=== PATIENT | male | born 1945 | race Caucasian/White ===

== ENCOUNTER 2017-01-02 13:56 | Emergency (ER) | payer MEDICARE ==
[2017-01-02 15:32] VITALS: BP 147/71
--- NOTE | 2017-01-02 16:03 | UC ---
Back Pain HPI - HPI Summary HPI Summary: 3 WEEKS OF RIGHT LOW BACK PAIN THAT RADIATES DOWN RIGHT LEG. PRIOR TO ONSET HAD BEEN DOING A LOT OF YARD WORK AND THINKS HE MAY HAVE HURT HIS BACK THEN. CHIROPRACTIC NOT HELPING. TYLENOL GIVES SOME RELIEF. WORSE WITH WALKING AND WHEN LAYING DOWN. NO NUMBNESS, TINGLING OR SADDLE ANESTHESIA. - History of Current Complaint Chief Complaint: UCBackPain Stated Complaint: BACK PAIN Time Seen by Provider: 01/02/17 16:01 Hx Obtained From: Patient Onset/Duration: Gradual Onset, Lasting Weeks, Still Present Timing: Constant Severity Initially: Moderate Severity Currently: Moderate Pain Intensity: 6 Pain Scale Used: 0-10 Numeric Back Pain: Is Discrete @ - RIGHT LOW BACK Character: Sharp, Aching Aggravating: Movement, Walking Alleviating: Rest, Position Associated Signs And Symptoms: Negative: Weakness, Numbness, Tingling, Bladder Incontinence, Bowel Incontinence - Allergies/Home Medications Allergies/Adverse Reactions: Allergies Allergy/AdvReac Type Severity Reaction Status Date / Time Tramadol AdvReac Nausea Verified 01/02/17 15:19 BANDAIDS Allergy RED, ITCHY Uncoded 01/02/17 15:19 ELASTIC WAIST BANDS Allergy ITCHY, RED Uncoded 01/02/17 15:19 ENVIRONMENT/SEASON HAYFEVER Allergy STUFFY Uncoded 01/02/17 15:19 PMH/Surg Hx/FS Hx/Imm Hx Endocrine History Of: Denies: Diabetes Cardiovascular History Of: Reports: Cardiac Disorders - CAD, AL, Hypertension, Myocardial Infarction Respiratory History Of: Denies: COPD, Asthma - Surgical History Surgical History: Yes Surgery Procedure, Year, and Place: 2009 CARDIAC CATHERIZATION WITH STENTS X 2, [facility]. 2001 MOHS SURGERY LEFT EAR, [facility]. TOOTH EXTRACTIONS, OFFICE. 2010 CARDIAC CATHERIZATION, [facility] [place]. 11/06/2015 RIGHT CARPAL TUNNEL RELEASE [facility] - Family History Known Family History: Positive: Hypertension, Diabetes - Social History Alcohol Use: None Substance Use Type: None Smoking Status (MU): Never Smoked Tobacco Have You Smoked in the Last Year: No - Immunization History Most Recent Influenza Vaccination: 2016 Most Recent Tetanus Shot: WITHIN LAST FIVE YEARS Most Recent Pneumonia Vaccination: 2014 Review of Systems Constitutional: Negative Skin: Negative Respiratory: Negative Cardiovascular: Negative Gastrointestinal: Negative Musculoskeletal: Arthralgia, Decreased ROM All Other Systems Reviewed And Are Negative: Yes Physical Exam Triage Information Reviewed: Yes Appearance: Well-Appearing, Well-Nourished, Pain Distress - MODERATE Vital Signs: Initial Vital Signs Temp 98 F 01/02/17 15:22 Pulse 61 01/02/17 15:22 Resp 18 01/02/17 15:22 BP 147/71 01/02/17 15:22 Pulse Ox 99 01/02/17 15:22 Vital Signs Reviewed: Yes Eyes: Positive: Conjunctiva Clear ENT: Positive: Hearing grossly normal Neck: Positive: Supple Respiratory: Positive: No respiratory distress, No accessory muscle use Cardiovascular: Positive: Pulses Normal Abdomen Description: Positive: Soft Musculoskeletal: Positive: ROM Intact, No Edema, Other: - NEG STRAIGHT LEG RAISE Neurological: Positive: Alert Psychological: Positive: Age Appropriate Behavior Skin: Negative: rashes Diagnostics - Radiology LUMBAR SPINE XRAYS Xray Interpretation: Positive (See Comments) - 1. CHRONIC MILD COMPRESSION FRACTURE OF THE SUPERIOR ENDPLATE OF THE L2 VERTEBRAL BODY, UNCHANGED. 2. MILD RETROLISTHESIS L4-L5, UNCHANGED. 3. MODERATE DEGENERATIVE DISC DISEASE DEMONSTRATING SLIGHT PROGRESSION. Radiology Interpretation Completed By: Radiologist Back Pain Course/Dx - Differential Dx/Diagnosis Provider Diagnoses: 1. DDD. 2. LUMBAR RADICULOPATHY Discharge - Discharge Plan Condition: Stable Disposition: HOME Prescriptions: oxyCODONE/Acetamin 5/325 MG* [Percocet 5/325 TAB*] 1 tab PO Q6H PRN #20 tab MDD 4 PRN Reason: Pain predniSONE TAB* [Deltasone TAB*] 50 mg PO DAILY #5 tab Patient Education Materials: Lumbar Radiculopathy (ED), Degenerative Disc Disease (ED) Referrals: Orestes Dickerson MD [Medical Doctor] - If Needed Juan F Solano MD [Primary Care Provider] - As Soon As Possible (YOU MAY BENEFIT FROM AN MRI) Additional Instructions: GO TO THE ER WITHOUT FAIL IF YOUR SYMPTOMS WORSEN OR IF YOU DEVELOP LOSS OF BOWEL/BLADDER CONTROL OR ANY OTHER CONCERNING SYMPTOMS. [facility] [address] [place] [address] [phone]
--- NOTE | 2017-01-02 16:50 | RAD ---
INDICATION: Low back pain. COMPARISON: Comparison is made with prior study from November 01 2011. TECHNIQUE: 3 views of the lumbar spine were obtained including lateral, AP and a coned-down lateral view of the lumbar sacral junction. FINDINGS: There is mild retrolisthesis of L4 relative to L5 of approximately 4 mm which is unchanged from the prior exam. There is a mild chronic compression fracture of the superior endplate of the L2 vertebral body which is unchanged. No acute fracture is seen. There is moderate degenerative disc disease at the L1-L2 and L4-L5 levels which has progressed slightly from the prior study. IMPRESSION: 1. CHRONIC MILD COMPRESSION FRACTURE OF THE SUPERIOR ENDPLATE OF THE L2 VERTEBRAL BODY, UNCHANGED. 2. MILD RETROLISTHESIS L4-L5, UNCHANGED. 3. MODERATE DEGENERATIVE DISC DISEASE DEMONSTRATING SLIGHT PROGRESSION.
== END 2017-01-02 17:25 | disposition home or self-care (01) ==
LOC: UCEAST 13:56
DX: M51.36 Other intervertebral disc degeneration, lumbar region (principal); M54.16 Radiculopathy, lumbar region; S32.020A Wedge compression fracture of second lumbar vertebra, initial encounter for closed fracture; X58.XXXA Exposure to other specified factors, initial encounter; Y93.H9 Activity, other involving exterior property and land maintenance, building and construction; Y92.007 Garden or yard of unspecified non-institutional (private) residence as the place of occurrence of the external cause; I25.10 Atherosclerotic heart disease of native coronary artery without angina pectoris; I25.2 Old myocardial infarction; I10 Essential (primary) hypertension; Z95.5 Presence of coronary angioplasty implant and graft; Z88.5 Allergy status to narcotic agent
CPT/HCPCS: 72100; 99212; G0463

== ENCOUNTER 2017-02-10 08:31 | Observation (INO) | payer MEDICARE ==
[~2017-02-10 08:31] MED LIST: Buffered Lidocaine 1% SYRIN* 3 ML/SYR SYRINGE INTRADERM ONE; Dexamethasone IV* 4 MG/ML 1 ML (4 MG) IV SLOW PU ONE; Dexamethasone IV* 4 MG/ML 1 ML (4 MG) ONE; Famotidine IV* 10 MG/ML 2 ML (20 mg) IV ONE; Famotidine IV* 10 MG/ML 2 ML (20 mg) ONE; Metoclopramide TAB* 10 MG ONE; Metoclopramide TAB* 10 MG PO ONE; ceFAZolin 2 GM PREMIX(*) 2 GM/50 ML BAG IVPB ONE
[2017-02-10] MEDS ORDERED: Dexamethasone IV* 4 MG/ML 1 ML (4 MG) ONE (09:00)
[2017-02-10] MEDS ORDERED: Ondansetron INJ* 2 MG/ML VIAL ONE (09:00)
[2017-02-10] MEDS ORDERED: fentaNYL* 50 MCG/ML 2 ML VIAL (100 MCG VIAL) ONE (09:00)
[2017-02-10] MEDS ORDERED: Phenylephrine INJ* 10 MG/ML 1 ML VIAL (10 MG) ONE (09:00)
[2017-02-10] MEDS ORDERED: Propofol* 10 MG/ML 20 ML BTL IV PUSH ONE (09:00)
[2017-02-10] MEDS ORDERED: Lidocaine 2% PF * 5 ML VIAL ONE (09:00)
[2017-02-10] MEDS ORDERED: Cisatracurium* 2 MG/ML MDV 5 ML ONE (09:00)
[2017-02-10] MEDS ORDERED: KETAMINE HCL* 50 MG/ML 10 ML VIAL ONE (09:00)
[2017-02-10] MEDS ORDERED: Midazolam* 1 MG/ML 5 ML VIAL (5 MG) ONE (09:01)
[2017-02-10] MEDS ORDERED: Bacitracin IV* 50,000 UNITS INJ ONE (10:04)
[2017-02-10] MEDS ORDERED: Thrombin 5,000 UNITS* 1 APPLIC KIT - topical use - TOPICAL ONE (10:04)
[2017-02-10] MEDS ORDERED: Lidocain 1% EPI 1:100,000 * 30 ML MDV ONE (10:04)
[2017-02-10] MEDS ORDERED: Artificial Tear OPHTH.OINT* 3.5 GM ONE (10:20)
[2017-02-10] MEDS ORDERED: EPHEDrine (Pressors)* 50 MG/ML VIAL ONE (10:46)
[2017-02-10] MEDS ORDERED: Ondansetron INJ* 2 MG/ML VIAL IV PRN ×2 (11:30→12:09)
[2017-02-10] MEDS ORDERED: HYDROmorphone* 1 MG/ML 1 ML SYR IV PRN (11:30)
[2017-02-10] MEDS ORDERED: fentaNYL* 50 MCG/ML 2 ML VIAL (100 MCG VIAL) IV PRN (11:30)
[2017-02-10] MEDS ORDERED: oxyCODONE/Acetamin 5/325 MG* TAB PO PRN (11:30)
[2017-02-10] MEDS ORDERED: DiMENhydriNATE IV* 50 MG/ML VIAL IV PUSH PRN (11:30)
--- NOTE | 2017-02-10 11:36 | RAD ---
HISTORY: Decompressive lumbar laminectomy COMPARISONS: January 02, 2017 VIEWS: 1 , portable intraoperative view of the lumbar spine for localization of spinal surgery performed at 11:00 AM FINDINGS: On the portable lateral view of the spine, counting from L5, a metallic probe is noted opposite of L4-L5 IMPRESSION: LIMITED PORTABLE VIEW OF THE LUMBAR SPINE PERFORMED INTRAOPERATIVELY FOR LOCALIZATION DURING SPINAL SURGERY
[2017-02-10] MEDS ORDERED: HYDROmorphone* 1 MG/ML 1 ML SYR ONE (11:49)
[2017-02-10] MEDS ORDERED: Acetaminophen TAB* 325 MG PO PRN (12:09)
[2017-02-10] MEDS ORDERED: Fluticasone NASAL SPRAY 50MCG* 16 gm SPRAY BTL BOTH NARES PRN (12:12)
[2017-02-10] MEDS ORDERED: Nitroglycerin TAB 0.4 MG* 0.4 MG TAB SL PRN (12:12)
[2017-02-10] MEDS ORDERED: oxyCODONE/Acetamin 5/325 MG* TAB ONE (15:42)
[2017-02-10] MEDS: oxyCODONE/Acetamin 5/325 MG* TAB PO PRN ×2 (15:44→23:55)
[2017-02-10] MEDS ORDERED: Aspirin EC Low Dose* 81 MG TAB.EC PO SCH (18:00)
[2017-02-10] MEDS ORDERED: Finasteride TAB* 5 MG PO SCH (18:00)
[2017-02-10] MEDS ORDERED: Senna TAB PO SCH (18:00)
[2017-02-10] MEDS ORDERED: Docusate CAP* 100 MG PO SCH (18:00)
[2017-02-10] MEDS ORDERED: Tamsulosin CAP* 0.4 MG PO SCH (18:00)
[2017-02-10] MEDS ORDERED: Atorvastatin* 20 MG TAB PO SCH (18:00)
[2017-02-10] MEDS: Famotidine TAB* 20 MG PO SCH (20:40)
[2017-02-10] MEDS: Metoprolol Tartrate TAB* 50 mg PO SCH (20:41)
[2017-02-11] MEDS: oxyCODONE/Acetamin 5/325 MG* TAB PO PRN (07:23)
--- NOTE | 2017-02-11 08:16 | PN ---
Progress Note - Progress Note SOAP: Subjective: [This is a 71 year old male s/p decompressive lumbar laminectomy L4-5 and lumbar discectomy L4-5 right, POD #1. He complains of mild incisional pain. He is ambulating independently without difficulty. Pre-operative lower extremity symptoms are improving. He is eating, drinking and voiding without difficulty. Pain is well controlled with oral pain medications. Denies headache. No numbness , tingling or weakness in lower extremities. ] Objective: [ Vital Signs: Temp Pulse Resp BP Pulse Ox 97.9 F 51 16 137/74 95 02/11/17 03:17 02/11/17 03:17 02/11/17 07:23 02/11/17 03:17 02/11/17 03:17 General: Alert and oriented. No distress. Neuro: Motor and sensory intact. Incision: Intact with river. No swelling. HUGO drain removed today. HUGO output 02/10/17 02/10/17 02/10/17 13:15 16:26 18:56 Output, HUGO #1 15 70 30 02/10/17 02/11/17 02/11/17 23:04 00:18 04:30 Output, HUGO #1 10 15 20 ] Assessment: [Satisfactory post op course. Pain well controlled. ] Plan: [1. Discharge home today. 2. Discharge instructions including wound care and activity level were discussed with the patient. ]
[2017-02-11] MEDS: Famotidine TAB* 20 MG PO SCH (08:46)
[2017-02-11] MEDS: Metoprolol Tartrate TAB* 50 mg PO SCH (08:47)
[2017-02-11 08:50] VITALS: BP 129/69
[2017-02-11] MEDS ORDERED: Lisinopril TAB* 5 MG PO SCH (09:00)
--- NOTE | 2017-02-11 15:00 | DS ---
DATE OF ADMISSION: 02/10/2017. DATE OF DISCHARGE: 02/11/2017. DISCHARGE DIAGNOSES: 1. Lumbar spinal stenosis at L4-5. 2. Coronary artery disease. SPECIAL PROCEDURES: Decompressive lumbar laminectomy L4-5 and lumbar diskectomy L4- 5 on the right. HOSPITAL COURSE: This 71-year-old male was seen in the office with symptomatic lumbar spinal stenosis which had failed to improve over the previous several years with conservative therapy. He was admitted at this time for elective surgical intervention. On the day of admission, he was taken to surgery where under general anesthesia a decompressive lumbar laminectomy at L4-5 operation was carried out. During surgery, it was noticed that a disk fragment was compressing the nerve at L4- 5 and therefore a lumbar diskectomy at L4-5 on the right was also performed. Postoperatively, the patient is feeling well. He complained of incisional low back pain related to surgery and relieved with oral pain medication. He was ambulating independently. He was eating, drinking and voiding without difficulty. On the first postoperative day, the incisional drain was removed and he was discharged home to the care of his family. Discharge instructions, including wound care and activity level were discussed with the patient and are provided. He will be seen in the office in approximately seven to ten days for a follow-up and staple removal. DISCHARGE MEDICATIONS: None. STACY ZULETA [id number]/[facility] #: [id number] MTDTalib
--- NOTE | 2017-02-17 12:11 | OP ---
DATE OF OPERATION: 02/10/17 - ROOM #351 DATE OF : 41. SURGEON: Orestes Dickerson MD. FEED IN WORKER: STACY Coombs. ANESTHESIOLOGIST: Jhonny Choi MD ANESTHESIA: General. PRE-OP DIAGNOSIS: Lumbar spinal stenosis L4-5. POST-OP DIAGNOSIS: Lumbar spinal stenosis L4-5, herniated nucleus pulposus L4- 5 on the right. OPERATIVE PROCEDURE: Decompressive lumbar laminectomy L4-5 with lumbar diskectomy L4-5 on the right with microdissection. DESCRIPTION OF PROCEDURE: After satisfactory general anesthesia was obtained, the patient was placed on the operating table in a prone position with the chest supported on the Dmitriy frame and the back slightly flexed. The lumbar region was then clipped, prepped, and draped in sterile manner for lumbar laminectomy and a skin incision outlined from L4-L5. This incision was infiltrated with 1% Xylocaine with epinephrine after which it was turned down sharply to the level of the lumbar fascia. The fascia was divided along the spinous processes of L4 and L5 and the paraspinal musculature stripped away from these posterior elements using the periosteal elevator and monopolar cautery. An intraoperative x-ray was obtained verifying proper interspace and localization after which a decompression was performed by moving the spinous process of the L4 and the spinous process of L5. The Midas Elier drill was then used to thin out the remaining portion of the base of the spinous process of L4 and the inferior aspect of the lamina of L4 as well as the facet complex. A decompression was then carried out removing both bone and ligament superiorly until the attachment of ligamentum flavum was taken down. Ligamentum flavum was removed with the Kerrison as well. The pathology in this case was both a component of bony hypertrophy as well as ligamentous thickening. On the right side in palpating the disk, there was noted to be free disk fragment projecting inferior to the disk space. To better expose this region, operating microscope was brought into the field and the remainder of the procedure done under microscopic visualization. Utilizing micro-dissection, this area was explored and multiple freely extruded disk fragments were found extending out into the neural foramen on the right side. Multiple fragments were removed and the disk space itself was noted to be somewhat collapsed. After conclusion of the decompression, the L5 nerve root was noted to be free in its course. After assuring adequate hemostasis, the wound was thoroughly irrigated after which a drain was placed in the epidural space and tunneled out through the right side. The fascia was reapproximated with 0-Vicryl sutures, the subcutaneous tissue was closed with 2 and 3-0 Vicryl suture, and the skin closed with skin clips. The estimated blood loss was less than 50 cc and the final sponge, padding, and needle counts were correct. The patient was taken to the recovery room extubated and in stable condition. [id number]/[facility] #: [id number] ADEBAYO
== END 2017-02-11 10:05 | disposition home or self-care (01) ==
LOC: OR 08:31 → SSU 13:45
PROVIDERS: ADMIT Neurological Surgery; ATTEND Neurological Surgery
PROC: 01NB0ZZ Release Lumbar Nerve, Open Approach (ICD-10-PCS; 2017-02-10)
PROC: 0SB20ZZ Excision of Lumbar Vertebral Disc, Open Approach (ICD-10-PCS; principal; 2017-02-10 10:00)
DX: M48.06 Spinal stenosis, lumbar region (principal); M51.26 Other intervertebral disc displacement, lumbar region; I10 Essential (primary) hypertension; Z88.2 Allergy status to sulfonamides; Z88.8 Allergy status to other drugs, medicaments and biological substances
CPT/HCPCS: 72100; A9270-GY; G0378; J0690; J1100; J1170; J2250; J2405; J2704; J3010

== ENCOUNTER 2017-03-31 07:03 | Inpatient (IN) | payer MEDICARE ==
--- NOTE | 2017-03-27 18:20 | HP ---
HISTORY AND PHYSICAL: DATE OF ADMISSION/SURGERY: 03/31/17 ATTENDING SURGEON: Dr. Corea (DICTATED BY STACY LI) PROCEDURE: Left total knee arthroplasty. CHIEF COMPLAINT: Left knee pain. HISTORY OF PRESENT ILLNESS: Mr. Bowden is a 71-year-old gentleman with complaints of left knee pain. He has failed conservative management and has elected to proceed with a left total knee arthroplasty which is scheduled for with Dr. Corea. PAST MEDICAL HISTORY: OR, coronary artery disease, hyperlipidemia, hypertension , BPH, squamous cell carcinoma of the face. PAST SURGICAL HISTORY: Carpal tunnel release bilaterally, right total knee arthroplasty, lumbar laminectomy, cardiac catheterization with stent placement, teeth extraction. CURRENT MEDICATIONS: 1. Plavix. 2. Aspirin. 3. Lisinopril. 4. Metoprolol. 5. Ocuvite. 6. Nitrostat. 7. Simvastatin. 8. Famotidine. 9. Loratadine. 10. Finasteride. 11. Tamsulosin. 12. Fluticasone. ALLERGIES: To BACTRIM. FAMILY HISTORY: Family history of colon cancer. SOCIAL HISTORY: He is a 71-year-old gentleman who lives with his . He does not smoke, use drugs or alcohol. REVIEW OF SYSTEMS: A complete 14-point review of systems is reviewed with the patient and is positive for anemia and mild occasional lightheadedness. He denies history of DVT, PE, or anesthesia problems. PHYSICAL EXAMINATION GENERAL: Well developed, well nourished, in no acute distress. VITAL SIGNS: He stands 6 feet tall, weighs 235 pounds. Blood pressure is 128/ 70, heart rate is 63. HEENT: Normocephalic and atraumatic. NECK: Supple. No palpable lymph nodes. PULMONARY: Lungs are clear to auscultation bilaterally. CARDIO: Regular rate and rhythm. Strong S1, S2. No murmurs, gallops or rubs. ABDOMEN: Soft, nontender, nondistended. NEUROLOGICAL: Alert and oriented x3. Cranial nerves II through XII are intact. MUSCULOSKELETAL: Left lower extremity, the skin is intact. There are no open wounds or abrasions. He has tenderness over the medial and lateral joint line. His lower extremities muscle group strengths are intact at 5/5. He has intact sensation. 2+ dorsalis pedis pulses. ASSESSMENT AND PLAN: Mr. Bowden is a 71-year-old gentleman with complaints of left knee pain secondary to advanced osteoarthritis. He has failed conservative management. He has elected to proceed with a left total knee arthroplasty. Percocet and Senokot were sent to his pharmacy for postoperative pain control. He will follow up with Dr. Corea in 2 weeks after the surgery. STACY LI [id number]/[facility] #: [id number] ADEBAYO
[~2017-03-31 07:03] MED LIST changes: +Buffered Lidocaine 0.9% SYRIN* 5 ML/SYR SYRINGE INTRADERM ONE; -Buffered Lidocaine 1% SYRIN* 3 ML/SYR SYRINGE INTRADERM ONE; -Dexamethasone IV* 4 MG/ML 1 ML (4 MG) IV SLOW PU ONE; -Dexamethasone IV* 4 MG/ML 1 ML (4 MG) ONE; -Famotidine IV* 10 MG/ML 2 ML (20 mg) IV ONE; -Famotidine IV* 10 MG/ML 2 ML (20 mg) ONE; -Metoclopramide TAB* 10 MG ONE; -Metoclopramide TAB* 10 MG PO ONE; -ceFAZolin 2 GM PREMIX(*) 2 GM/50 ML BAG IVPB ONE
[2017-03-31] MEDS ORDERED: ceFAZolin 2 GM PREMIX(*) 2 GM/50 ML BAG IVPB ONE (07:08)
[2017-03-31] MEDS ORDERED: Buffered Lidocaine 0.9% SYRIN* 5 ML/SYR SYRINGE ONE (07:08)
[2017-03-31] MEDS ORDERED: Succinylcholine* 20 MG/ML 10 ML VIAL ONE (08:38)
[2017-03-31] MEDS ORDERED: Propofol* 10 MG/ML 20 ML BTL IV PUSH ONE (08:38)
[2017-03-31] MEDS ORDERED: Midazolam* 1 MG/ML 5 ML VIAL (5 MG) ONE (08:38)
[2017-03-31] MEDS ORDERED: fentaNYL* 50 MCG/ML 2 ML VIAL (100 MCG VIAL) ONE ×3 (08:38→12:18)
[2017-03-31] MEDS ORDERED: Bupivacaine 0.5% SDV PF* 30 ML VIAL ONE ×2 (09:09→10:35)
[2017-03-31] MEDS ORDERED: Ondansetron INJ* 2 MG/ML VIAL IV PRN ×2 (10:54→12:13)
[2017-03-31] MEDS ORDERED: DiMENhydriNATE IV* 50 MG/ML VIAL IV PUSH PRN (10:54)
[2017-03-31 10:57] LABS: Urine Bilirubin Negative (Negative); Urine Glucose Negative (Negative); Urine Nitrite Negative (Negative)
[2017-03-31] MEDS ORDERED: diPHENhydraMINE IV* 50 MG/ML 1 ml VIAL (BENADRYL) IV PRN (12:13)
[2017-03-31] MEDS ORDERED: diPHENhydraMINE PO* 25 MG PO PRN (12:13)
[2017-03-31] MEDS ORDERED: HYDROmorphone* 1 MG/ML 1 ML SYR ONE ×2 (12:18→22:07)
[2017-03-31] MEDS: fentaNYL* 50 MCG/ML 2 ML VIAL (100 MCG VIAL) IV PRN ×4 (12:19→12:57)
[2017-03-31] MEDS ORDERED: Polyethylene Glycol 3350* 17 GM PACKET PO PRN (12:20)
[2017-03-31] MEDS ORDERED: Bisacodyl SUPP* 10 MG SUPP PR PRN (12:20)
[2017-03-31] MEDS: HYDROmorphone* 1 MG/ML 1 ML SYR IV PRN ×5 (12:21→13:05)
[2017-03-31] MEDS ORDERED: Fluticasone NASAL SPRAY 50MCG* 16 gm SPRAY BTL BOTH NARES PRN (12:24)
[2017-03-31] MEDS ORDERED: Nitroglycerin TAB 0.4 MG* 0.4 MG TAB SL PRN (12:24)
--- NOTE | 2017-03-31 12:37 | CONSULT ---
Subjective Date of Service: 03/31/17 Interval History: 71 yo M with hx of HTN, HLD, CAD s/p stent x2, BPH with progressive L knee pain now s/p L TKA by Dr. Corea. Patient seen in PACU. Reports 9/10 pain in L knee but otherwise feels well. No issues leading up to the surgery, has been feeling well aside from the knee. Reports he was taken off of Plavix last week, took it last on 03/25. Family History: Findings - F - colon cancer, M - bladder cancer Social History: Findings - No tobacco abuse, does not drink EtOH, no drug use Past Medical History: Findings - HTN, HLD, CAD s/p stent x 2 in [place], BPH Review of Systems - Measurements Intake and Output: Intake and Output Last 24 Hours 03/29/17 03/30/17 03/31/17 04/01/17 06:59 06:59 06:59 06:59 Intake Total 1600 Output Total 805 Balance 795 Intake: IV Fluids 1600 LR 1600 Output: [place] 625 Residual 30 Londono 16 Fr 30 Estimated Blood Loss 150 - Review of Systems Constitutional Symptoms: Negative: Fever Dermatology: Positive: Normal HEENT: Positive: Normal Eyes: Positive: Normal Thyroid: Positive: Normal Pulmonary: Positive: Normal Cardiology: Positive: Normal Gastroenterology: Positive: Normal Genital - Urinary: Positive: Normal Musculoskeletal: Positive: Joint Pain, Arthritis Endocrinology: Positive: Normal Neurology: Positive: Normal Psychiatry: Positive: Normal Objective Active Medications: Aspirin (Aspirin Ec Low Dose*) 81 mg PO QPM LEIF Bisacodyl (Dulcolax Supp*) 10 mg [place] DAILY PRN Dimenhydrinate (Dramamine Iv*) 12.5 mg IV PUSH ONCE PRN Diphenhydramine HCl (Benadryl Iv*) 12.5 mg IV Q6H PRN Diphenhydramine HCl (Benadryl Po*) 25 mg PO Q6H PRN Docusate Sodium (Colace Cap*) 100 mg PO BID LEIF Enoxaparin Sodium (Lovenox(*)) 30 mg SUBCUT Q24H LEIF Famotidine (Pepcid Tab*) 20 mg PO BID LEIF Fentanyl Citrate (Fentanyl*) 25 mcg IV Q2M PRN Finasteride (Proscar Tab*) 5 mg PO QPM LEIF Fluticasone Propionate (Flonase Nasal [place] 50mcg*) 2 spray BOTH NARES DAILY PRN Hydromorphone HCl (Dilaudid Iv*) 0.2 mg IV Q5M PRN Lactated Ringer's (Lactated Ringers 1000 Ml Bag*) 1,000 mls @ 125 mls/hr IV PER RATE LEIF Lactated Ringer's (Lactated Ringers 1000 Ml Bag*) 1,000 mls @ 100 mls/hr IV PER RATE LEIF Cefazolin Sodium 1 gm/ Sodium (Chloride) 50 mls @ 200 mls/hr IVPB Q8H LEIF Lactulose (Lactulose*) 30 ml PO Q6H PRN Lidocaine/Sodium Bicarbonate (Buffered Lidocaine 0.9% Syrin*) 0.2 ml INTRADERM ONCE ONE Lisinopril (Prinivil Tab*) 2.5 mg PO QAM LEIF Loratadine (Claritin Tab(Nf)) 10 mg PO QPM LEIF Magnesium Hydroxide (Milk Of Magnesia Liq*) 30 ml PO BID LEIF Metoprolol Tartrate (Lopressor Tab*) 75 mg PO BID LEIF Morphine Sulfate (Morphine Inj (Syringe)*) 5 mg IV Q2H PRN Multivitamins/Minerals (Preservision Areds(Multivitamins/Mineral)(Nf)) 1 cap PO QAM LEIF Nitroglycerin (Nitroglycerin Tab 0.4 Mg*) 0.4 mg SL SEE INSTRUCTIONS PRN Ondansetron HCl (Zofran Inj*) 4 mg IV ONCE PRN Ondansetron HCl (Zofran Inj*) 4 mg IV Q6H PRN Ondansetron HCl (Zofran Tab*) 4 mg PO Q6H PRN Oxycodone HCl (Roxycodone Tab*) 10 mg PO Q4H PRN Oxycodone/Acetaminophen (Percocet 5/325 Tab*) 2 tab PO Q3H PRN Oxycodone/Acetaminophen (Percocet 5/325 Tab*) 1 tab PO Q3H PRN Polyethylene Glycol/Electrolytes (Miralax*) 17 gm PO DAILY PRN Simvastatin (Zocor (Nf)) 40 mg PO QPM LEIF Tamsulosin HCl (Flomax Cap*) 0.4 mg PO QPM LEIF Warfarin Sodium (Coumadin Tab(*)) 6 mg PO ONCE@1700 ONE Vital Signs 0603/31/17 03/31/17 12:06 12:10 12:19 Temperature 98.2 F Pulse Rate 67 67 Respiratory 24 16 18 Rate Blood Pressure 128/74 99/87 (mmHg) O2 Sat by Pulse 92 91 Oximetry Oxygen Devices in Use Now: None Appearance: Elderly, M, bundled in blankets, laying in bed in NAD Eyes: No Scleral Icterus Ears/Nose/Mouth/Throat: Mucous Membranes Moist Neck: NL Appearance and Movements; NL JVP Respiratory: Symmetrical Chest Expansion and Respiratory Effort, Clear to Auscultation Cardiovascular: NL Sounds; No Murmurs; No JVD, RRR Abdominal: NL Sounds; No Tenderness; No Distention Lymphatic: No Cervical Adenopathy Extremities: No Edema, - - L knee with dressing and cryounit in place Skin: No Rash or Ulcers Neurological: Alert and Oriented x 3 Assessment/Plan - Billing 71 yo M with hx of HTN, HLD, CAD s/p stent x2, BPH s/p L TKA by Dr. Corea on 1) S/P L TKA - management, analgesia as per Ortho - Coumadin ordered for tonight 2) HTN - hold Lisinopril for now - continue Metoprolol with hold parameters 3) CAD - continue ASA, metoprolol, statin - holding ACEI - will need to discuss with Ortho when plans are to resume Plavix, ?after course of AC 4) BPH - continue finasteride and tamsulosin 5) DVT PPx - warfarin/lovenox Thank you for this consult, will continue to follow along
[2017-03-31] MEDS ORDERED: oxyCODONE/Acetamin 5/325 MG* TAB ONE (13:28)
[2017-03-31] MEDS: oxyCODONE/Acetamin 5/325 MG* TAB PO PRN ×3 (13:29→20:42)
--- NOTE | 2017-03-31 13:38 | RAD ---
INDICATION: The patient is status post left total knee arthroplasty. COMPARISON: Preoperative radiograph dated March 27, 2017 TECHNIQUE: 2 view radiograph of the left knee. FINDINGS: The left knee prosthesis is anatomically aligned in the AP and lateral projections. There is no evidence of loosening or fracture. Postoperative findings include a percutaneous surgical drain and subcutaneous gas. IMPRESSION: Anatomic alignment of left knee prosthesis with expected postoperative findings.
[2017-03-31] MEDS ORDERED: Morphine INJ* 10 MG/ML 1 ML SYRINGE ONE (15:00)
[2017-03-31] MEDS: Morphine INJ* 10 MG/ML 1 ML SYRINGE IV PRN ×3 (15:06→20:07)
[2017-03-31] MEDS ORDERED: Warfarin TAB(*) 6 MG PO ONE (17:00)
[2017-03-31] MEDS: Aspirin EC Low Dose* 81 MG TAB.EC PO SCH (17:26)
[2017-03-31] MEDS: Finasteride TAB* 5 MG PO SCH (17:26)
[2017-03-31] MEDS: Cetirizine* 10 MG TAB PO SCH (17:26)
[2017-03-31] MEDS: ceFAZolin VIAL(*) 1 GM in NS 0.9% 50 ML* 50 ML IVPB SCH (17:26)
[2017-03-31] MEDS: Tamsulosin CAP* 0.4 MG PO SCH (17:26)
[2017-03-31] MEDS: Atorvastatin* 20 MG TAB PO SCH (17:26)
[2017-03-31] MEDS: Famotidine TAB* 20 MG PO SCH (20:42)
[2017-03-31] MEDS: Docusate CAP* 100 MG PO SCH (20:42)
[2017-03-31] MEDS: Magnesium Hydroxide LIQ* 30 ML UDC PO SCH (20:43)
[2017-03-31] MEDS ORDERED: Metoprolol Tartrate TAB* 50 mg PO SCH (21:00)
[2017-03-31] MEDS: Metoprolol Tartrate TAB* 25 MG PO SCH (22:41)
[2017-04-01] MEDS: oxyCODONE/Acetamin 5/325 MG* TAB PO PRN ×4 (00:47→21:29)
[2017-04-01] MEDS: ceFAZolin VIAL(*) 1 GM in NS 0.9% 50 ML* 50 ML IVPB SCH ×2 (02:27→09:42)
[2017-04-01] MEDS: HYDROmorphone* 1 MG/ML 1 ML SYR IV PRN ×4 (02:34→13:26)
--- NOTE | 2017-04-01 04:40 | OP ---
DATE OF OPERATION: 03/31/17 - ROOM #350 DATE OF : 41 SURGEON: Dejah Corea MD FOLDER TAPER OPERATOR: STACY Ferraro. Ms. Villarreal did help throughout the procedure with preparation of the leg, wound retraction, manipulation of the knee, and wound closure. ANESTHESIOLOGIST: Kendell Grace MD ANESTHESIA: General with adductor nerve block. PRE-OP DIAGNOSIS: Severe end-stage degenerative osteoarthritis of the left knee joint. POST-OP DIAGNOSIS: Severe end-stage degenerative osteoarthritis of the left knee joint. OPERATIVE PROCEDURE: Left total knee arthroplasty. TOURNIQUET TIME: 47 minutes. ESTIMATED BLOOD LOSS: 300 cc. COMPLICATIONS: None. SPECIMEN: Bone and cartilage from the left knee joint sent to pathology. HARDWARE USED: This is cemented [employer] total knee hardware. Two packages of Simplex bone cement were used. For the femur, a size 7 left posterior stabilized region femoral component. For the tibia, a size 6 tibial base plate. For the insert, an 11 mm posterior stabilized articular insert. For the patella, a 35-mm 3-peg all poly patella. BRIEF HISTORY/INDICATIONS: Mr. Bowden is a 71-year-old gentleman with years of increasingly severe left knee pain. He failed conservative treatment with anti - inflammatories, pain pills, ambulatory assistive device, physical therapy, and intraarticular injections. Due to continued pain and decreased quality of life, he elected to undergo left total knee arthroplasty. Radiographs confirmed bone-on- bone arthritis. Informed consent was obtained from the patient. He understood the risks of the procedure included, but were not limited to bleeding, infection, damage to nearby structures, continued pain, need for further surgery, intraoperative fracture, nerve palsy, hardware failure , loosening, stroke, heart attack, blood clot, and . He wished to proceed. INTRAOPERATIVE FINDINGS: Intraoperatively, the patient was noted to have severe end-stage osteoarthritis with complete loss of cartilage in the medial and patellar femoral compartments. DESCRIPTION OF PROCEDURE: Mr. Bowden was identified in the preanesthesia unit. His left lower extremity was marked as the correct operative side. Informed consent was signed and placed in the chart. The patient was taken to the operating room and placed under general anesthesia with an adductor canal block. Londono catheter was placed. Tourniquet was placed on the left thigh. Left lower extremity was prepped and draped in the usual sterile fashion. Preop time-out was made to correctly identify the patient's side and site. Appropriate perioperative antibiotics were given within 1 hour of incision. Tourniquet was inflated until the tourniquet time for this procedure was 47 minutes. A 14 cm midline incision was made with a 10 blade and carried down to the extensor mechanism. The extensor mechanism was opened with a new 10 blade using a standard medial peripatellar arthrotomy. The patella was subluxed laterally. Electrocautery was used to elevate soft tissue off the superior medial tibia to the mid sagittal plane. The knee was flexed up. The anterior horn of the lateral meniscus and the ACL were sharply released. A drill was used to enter the distal femur. Intramedullary distal femoral cutting jig was pinned on the distal femur. 10 mm of distal femur was carefully removed using an oscillating saw. External rotation guide was placed on the distal femur and the distal femur was sized to a size 7. Size 7 multi- cutting jig was placed on the distal femur. Oscillating saw was used to make the appropriate 4 chamfer cuts. The PCL was completely released and the tibia was subluxed anteriorly. Extramedullary tibial cutting guide was pinned down the proximal tibia. Oscillating saw was used to make the proximal tibial cut perpendicular to the mechanical axis of the tibia. The proximal tibial bone was carefully removed. The knee was brought out into full extension. A spacer block had good fit. There was good medial and lateral ligamentous balancing. Flexion and extension gaps were well balanced. The knee was flexed up. Lamina lumber handler was placed both medially and laterally. Any remaining meniscus was carefully removed using electrocautery. Curved osteotome was used to remove any posterior osteophytes. A tibial tray and drop julissa was placed to once again confirm satisfactory proximal tibial cut. This was confirmed. A trial size 7 left femoral component was impacted onto the distal femur. This had excellent fit. Reamer and box cut osteotome was used to prepare the box for the posterior stabilized implant. Size 6 tibial tray trial and an 11 mm insert trial was placed. The knee was taken through a range of motion. The knee was stable in all positions. There was good medial and lateral ligamentous balancing. There was good patellofemoral tracking. The patella was everted. 9 mm of patellar bone and cartilage was carefully removed using an oscillating saw. The patella was sized to a size 35. Three pegs holes were drilled through the size 35 guide. A 35 trial patella was placed and the knee was taken through a range of motion. There was good patellofemoral tracking. All trials were carefully removed. The tibia was subluxed anteriorly and sized to a size 6. Proximal tibia was prepared using a size 6 keel punch. All bony cut surfaces were copiously irrigated with sterile saline and dried. Final implants were cemented into place starting with the tibia, followed by the femur and last the patella. An 11 mm insert trial was placed while the knee was brought into full extension. Tourniquet was turned down at 47 minutes. The cement was allowed to fully cure. The knee was copiously irrigated with sterile saline. Once the cement had fully cured, the insert trial was removed. Electrocautery was used to obtain meticulous hemostasis. Any extra cement was carefully removed from around the implants and capsule. Final insert chosen was an 11 mm posterior stabilized size 5/6 polyethylene insert. This was locked into position on the tibial tray without difficulty. Stability of the insert was checked and rechecked and noted to be stable. Final range of motion was full extension to 130 degrees of flexion. There was good patellofemoral tracking. The knee was copiously irrigated with sterile saline. The extensor mechanism was closed over a medium Hemovac drain using interrupted #1 Vicryls. The rest of the incision was closed in a layered fashion using 0 and 2-0 Vicryls. Skin was closed using running 3-0 nylon suture. Sterile, Xeroform, 4x4s, and Webril were used to cover the incision. Alexis wrap and cold packs were placed over this. The patient's anesthesia was reversed without difficulty. He was taken to the PACU in stable condition. Intended weight bearing will be weightbearing as tolerated. Intended DVT prophylaxis will be Coumadin with a Lovenox bridge. [id number]/[facility] #: [id number] [place]
[2017-04-01 06:24] LABS: Hematocrit 33 % (42-52); Hemoglobin 10.7 g/dl (14.0-18.0)
[2017-04-01 06:41] LABS: BUN/Creatinine Ratio 9.8 (8-20); Calcium 8.2 mg/dL (8.6-10.3); EGFR African American 118.4 (>60); EGFR Non-African American 92.1 (>60); Potassium 4.1 mmol/L (3.5-5.0)
[2017-04-01] MEDS: Magnesium Hydroxide LIQ* 30 ML UDC PO SCH ×2 (08:54→21:22)
--- NOTE | 2017-04-01 08:54 | PN ---
Progress Note - Progress Note SOAP: Subjective: []Patient seen at bedside. Vomited last pm but nausea has resolved and he was able to eat breakfast this am. Feels slightly dizzy but denies SBO or chest pain. Pain levels in left knee well managed after morning pain medications. Objective: [] Vital Signs Temp 99.4 F 04/01/17 07:41 Pulse 71 04/01/17 07:41 Resp 16 04/01/17 07:41 BP 138/67 04/01/17 07:41 Pulse Ox 100 04/01/17 07:41 Intake & Output 03/31/17 04/01/17 04/01/17 18:59 06:59 18:59 Intake Total 1900 2963 Output Total 805 3650 Balance 1095 -687 Intake: IV Fluids 1900 953 LR 1900 953 Oral 2010 Output: Londono 625 3650 Residual 30 Londono 16 Fr 30 Estimated Blood Loss 150 Other: # Bowel Movements 0 Laboratory Results - last 24 hr 03/31/17 04/01/17 04/01/17 09:46 05:56 05:56 Hgb 10.7 L Hct 33 L INR (Anticoag Therapy) 1.04 Sodium Potassium Chloride Carbon Dioxide Anion Gap BUN Creatinine Est GFR ( Amer) Est GFR (Non-Af Amer) BUN/Creatinine Ratio Glucose Calcium Urine Color Yellow Urine Appearance Clear Urine pH 6.0 Ur Specific [place] 1.014 Urine Protein Negative Urine Ketones Negative Urine Blood Negative Urine Nitrate Negative Urine Bilirubin Negative Urine Urobilinogen Negative Ur Leukocyte Esterase Negative Urine Glucose Negative Urine Ascorbic Acid * H 04/01/17 05:56 Hgb Hct INR (Anticoag Therapy) Sodium 135 Potassium 4.1 Chloride 101 Carbon Dioxide 30 Anion Gap 4 BUN 8 Creatinine 0.82 Est GFR ( Amer) 118.4 Est GFR (Non-Af Amer) 92.1 BUN/Creatinine Ratio 9.8 Glucose 125 H Calcium 8.2 L Urine Color Urine Appearance Urine pH Ur Specific [place] Urine Protein Urine Ketones Urine Blood Urine Nitrate Urine Bilirubin Urine Urobilinogen Ur Leukocyte Esterase Urine Glucose Urine Ascorbic Acid Left knee drain was discontinued this am by Dr. Corea, no complications dressing remains dry and intact L knee calf non tender +DF/PF left ankle Assessment: []s/p left total knee arthroplasty POD #1 Plan: []PT/OT WBAT LLE, yet to get OOB this am Coumadin with Lovenox bridge. Dr. Corea would like Plavix held and re started after the month of Coumadin post op
[2017-04-01] MEDS: Docusate CAP* 100 MG PO SCH ×2 (08:55→21:22)
[2017-04-01] MEDS: Metoprolol Tartrate TAB* 25 MG PO SCH (08:55)
[2017-04-01] MEDS: Famotidine TAB* 20 MG PO SCH ×2 (08:55→21:22)
[2017-04-01] MEDS: Multivitamins/Minerals TAB PO SCH (08:56)
[2017-04-01] MEDS ORDERED: Lisinopril TAB* 5 MG PO SCH (09:00)
[2017-04-01] MEDS ORDERED: Senna TAB PO PRN (09:21)
[2017-04-01] MEDS ORDERED: Magnesium Sulfate 2 GM IV* 2 GM/50 ML BAG IVPB ONE (09:42)
[2017-04-01 10:01] LABS: Magnesium 1.7 mg/dL (1.9-2.7)
--- NOTE | 2017-04-01 10:03 | PN ---
Subjective Date of Service: 04/01/17 Interval History: This is a 71 yo male with h/o CAD, HTN, HLD who is s/p L TKR. Patient was nauseated last night and vomited at least once after receiving morphine. Patient reports that n/v have improved this am and he was able to tolerate breakfast this am. Nursing noted bradycardia with HR in the low 40s to high 30s and normotensive. Patient became lightheaded when he sat up to the side of the bed. HR corrected into the 70s. Hospitalist team was contacted for evaluation. Patient reports continued pain at the surgical site. No CP or SOB. No abd pain , n/v this am. Objective Active Medications: Aspirin (Aspirin Ec Low Dose*) 81 mg PO QPM [facility] Last Admin: 03/31/17 17:26 Dose: 81 mg Atorvastatin Calcium (Lipitor*) 20 mg PO QPM [facility] Last Admin: 03/31/17 17:26 Dose: 20 mg Bisacodyl (Dulcolax Supp*) 10 mg [place] DAILY PRN PRN Reason: constipation Cetirizine HCl (Zyrtec*) 10 mg PO QPM [facility] Last Admin: 03/31/17 17:26 Dose: 10 mg Diphenhydramine HCl (Benadryl Iv*) 12.5 mg IV Q6H PRN PRN Reason: PRURITIS Diphenhydramine HCl (Benadryl Po*) 25 mg PO Q6H PRN PRN Reason: INSOMNIA Docusate Sodium (Colace Cap*) 100 mg PO BID [facility] Last Admin: 04/01/17 08:55 Dose: 100 mg Enoxaparin Sodium (Lovenox(*)) 30 mg SUBCUT Q24H [facility] Famotidine (Pepcid Tab*) 20 mg PO BID [facility] Last Admin: 04/01/17 08:55 Dose: 20 mg Finasteride (Proscar Tab*) 5 mg PO QPM [facility] Last Admin: 03/31/17 17:26 Dose: 5 mg Fluticasone Propionate (Flonase Nasal [place] 50mcg*) 2 spray BOTH NARES DAILY PRN PRN Reason: Allergy Symptoms Hydromorphone HCl (Dilaudid Iv*) 0.5 mg IV Q2H PRN PRN Reason: PAIN - SEVERE Last Admin: 04/01/17 07:39 Dose: 0.5 mg Lactated Ringer's (Lactated Ringers 1000 Ml Bag*) 1,000 mls @ 100 mls/hr IV PER RATE [facility] Last Admin: 04/01/17 01:01 Dose: 100 mls/hr Cefazolin Sodium 1 gm/ Sodium (Chloride) 50 mls @ 200 mls/hr IVPB Q8H [facility] Stop: 04/01/17 10:14 Last Admin: 04/01/17 09:42 Dose: 200 mls/hr Magnesium Sulfate (Magnesium Sulfate 2 Gm Iv*) 2 gm in 50 mls @ 50 mls/hr IVPB ONCE ONE Stop: 04/01/17 10:41 Lactulose (Lactulose*) 30 ml PO Q6H PRN PRN Reason: constipation Magnesium Hydroxide (Milk Of Magndebbie Liq*) 30 ml PO BID [facility] Last Admin: 04/01/17 08:54 Dose: 30 ml Metoprolol Tartrate (Lopressor Tab*) 75 mg PO BID [facility] Last Admin: 04/01/17 08:55 Dose: 75 mg Morphine Sulfate (Morphine Inj (Syringe)*) 5 mg IV Q2H PRN PRN Reason: PAIN Last Admin: 03/31/17 20:07 Dose: 5 mg Multivitamins/Minerals (Theragran/Minerals Tab*) 1 tab PO QAM [facility] Last Admin: 04/01/17 08:56 Dose: 1 tab Nitroglycerin (Nitroglycerin Tab 0.4 Mg*) 0.4 mg SL Q5M PRN PRN Reason: chest pain Ondansetron HCl (Zofran Inj*) 4 mg IV Q6H PRN PRN Reason: nausea Last Admin: 03/31/17 21:55 Dose: 4 mg Ondansetron HCl (Zofran Tab*) 4 mg PO Q6H PRN PRN Reason: NAUSEA Oxycodone HCl (Roxycodone Tab*) 10 mg PO Q4H PRN PRN Reason: breakthru pain Oxycodone/Acetaminophen (Percocet 5/325 Tab*) 2 tab PO Q3H PRN PRN Reason: PAIN - MODERATE Last Admin: 04/01/17 07:02 Dose: 2 tab Oxycodone/Acetaminophen (Percocet 5/325 Tab*) 1 tab PO Q3H PRN PRN Reason: PAIN - MODERATE Polyethylene Glycol/Electrolytes (Miralax*) 17 gm PO DAILY PRN PRN Reason: Constipation Senna (Senokot Tab*) 2 tab PO BEDTIME PRN PRN Reason: CONSTIPATION Tamsulosin HCl (Flomax Cap*) 0.4 mg PO QPM LEIF Last Admin: 03/31/17 17:26 Dose: 0.4 mg Warfarin Sodium (Coumadin Tab(*)) 8 mg PO ONCE@1700 ONE PRN Reason: Protocol Stop: 04/01/17 17:01 Vital Signs: Temp Pulse Resp BP Pulse Ox 99.4 F 40 20 155/64 99 04/01/17 07:41 04/01/17 09:58 04/01/17 09:27 04/01/17 09:26 04/01/17 09:58 Oxygen Devices in Use Now: None Appearance: Mildly uncomfortable appearing elderly gentleman in NAD lying in hospital bed. Ears/Nose/Mouth/Throat: Mucous Membranes Moist Neck: NL Appearance and Movements; NL JVP Respiratory: Symmetrical Chest Expansion and Respiratory Effort, Clear to Auscultation Cardiovascular: NL Sounds; No Murmurs; No JVD, RRR Abdominal: NL Sounds; No Tenderness; No Distention Extremities: - - trace edema in LLE, no edema RLE Skin: No Rash or Ulcers Neurological: Alert and Oriented x 3 Result Diagrams: 04/01/17 05:56 04/01/17 05:56 Diagnostic Imaging: EKG - bigeminy Assess/Plan/Problems-Billing 71 yo M with hx of HTN, HLD, CAD s/p stent x2, BPH s/p L TKA by Dr. Corea on - Patient Problems (1) Status post total left knee replacement Comment: POD #1 Management per ortho (2) Dysrhythmia Comment: Symptomatic bradycardia with bigeminy on EKG Patient requires telemetry monitoring at this time and will be transferred to the appropriate floor Empirically replace Mg and provide 500 ml bolus now, will wait for additional beta blockade until bradycardic rhythm can be evaluated further on telemetry Hgb WNL this am and no other electrolyte abnormalities identified on am labs (3) CAD (coronary artery disease) Comment: Stable prior to surgery No evidence of ACS Last EF 45-50% Cont ASA and BB, Plavix held preoperatively and has not been resumed at this time, unsure of why dual antiplatelet therapy has continued at this time (4) HTN (hypertension) Comment: Normotensive Lisinopril has been held at this time, likely resume tomorrow if no further vomiting Cont metoprolol (5) BPH (benign prostatic hyperplasia) Comment: Cont finasteride and tamsulosin (6) DVT prophylaxis Comment: Coumadin bridged with Lovenox per ortho (7) Full code status Status and Disposition: Inpatient. Transfer to telemetry unit. Discussed with Dr Corea. Hospitalist will cont to follow along
[2017-04-01] MEDS: Ondansetron TAB* 4 MG PO PRN ×2 (11:17→18:01)
[2017-04-01] MEDS: oxyCODONE TAB* 5 MG TAB PO PRN (11:23)
[2017-04-01] MEDS: Enoxaparin(*) 30 MG/0.3 ML SYR SUBCUT SCH (13:27)
[2017-04-01 15:06] LABS: BUN/Creatinine Ratio 11.8 (8-20); Calcium 8.2 mg/dL (8.6-10.3); EGFR Non-African American 114.3 (>60); Magnesium 2.2 mg/dL (1.9-2.7); Potassium 4.3 mmol/L (3.5-5.0)
[2017-04-01] MEDS ORDERED: Metoprolol Tartrate TAB* 25 MG PO ONE (15:58)
[2017-04-01] MEDS ORDERED: Warfarin TAB(*) 4 MG PO ONE (17:00)
[2017-04-01] MEDS: Atorvastatin* 20 MG TAB PO SCH (18:00)
[2017-04-01] MEDS: Aspirin EC Low Dose* 81 MG TAB.EC PO SCH (18:02)
[2017-04-01] MEDS: Tamsulosin CAP* 0.4 MG PO SCH (18:02)
[2017-04-01] MEDS: Cetirizine* 10 MG TAB PO SCH (18:02)
[2017-04-01] MEDS: Finasteride TAB* 5 MG PO SCH (18:02)
[2017-04-01] MEDS: Metoprolol Tartrate TAB* 100 MG TAB PO SCH (21:22)
[2017-04-02] MEDS: oxyCODONE/Acetamin 5/325 MG* TAB PO PRN ×5 (03:39→21:54)
[2017-04-02 07:08] LABS: Hematocrit 29 % (42-52); Hemoglobin 9.5 g/dl (14.0-18.0)
[2017-04-02 07:22] LABS: BUN/Creatinine Ratio 13.3 (8-20); Calcium 8.3 mg/dL (8.6-10.3); EGFR African American 131.3 (>60); EGFR Non-African American 102.1 (>60); Magnesium 2.2 mg/dL (1.9-2.7); Potassium 4.1 mmol/L (3.5-5.0)
--- NOTE | 2017-04-02 07:33 | PN ---
Progress Note - Progress Note SOAP: Subjective: Pt. alert, reports pain is controlled. Denies CP, SOB, palpitations, sweating or dizziness. Objective: LLE - dressing changed, inc c/d/i. distally n vi. min edema. Vital Signs: Temp Pulse Resp BP Pulse Ox 99.5 F 38 18 123/37 90 04/02/17 04:11 04/02/17 04:11 04/02/17 04:11 04/02/17 04:11 04/02/17 04:11 Laboratory Results - last 24 hr 04/01/17 04/01/17 04/02/17 05:56 14:35 06:34 Hgb 9.5 L Hct 29 L INR (Anticoag Therapy) Sodium 131 L Potassium 4.3 Chloride 99 L Carbon Dioxide 26 Anion Gap 6 BUN 8 Creatinine 0.68 Est GFR ( Amer) 147.0 Est GFR (Non-Af Amer) 114.3 BUN/Creatinine Ratio 11.8 Glucose 143 H Calcium 8.2 L Magnesium 1.7 L 2.2 04/02/17 04/02/17 06:34 06:34 Hgb Hct INR (Anticoag Therapy) 1.58 H Sodium 133 Potassium 4.1 Chloride 101 Carbon Dioxide 28 Anion Gap 4 BUN 10 Creatinine 0.75 Est GFR ( Amer) 131.3 Est GFR (Non-Af Amer) 102.1 BUN/Creatinine Ratio 13.3 Glucose 125 H Calcium 8.3 L Magnesium 2.2 Assessment: 71 yo M pod 2 s/p LTKA Plan: magnesium corrected. plan transfer back to 3rd floor if hospitalists agree. plan restart therapy this AM if hospitalists agree wbat lle pt/ot 6 mg coumadin tonight, lovenox today
[2017-04-02] MEDS: Magnesium Hydroxide LIQ* 30 ML UDC PO SCH ×2 (07:37→21:52)
[2017-04-02] MEDS: Docusate CAP* 100 MG PO SCH ×2 (07:38→21:54)
[2017-04-02] MEDS: Multivitamins/Minerals TAB PO SCH (07:38)
[2017-04-02] MEDS: Famotidine TAB* 20 MG PO SCH ×2 (07:40→21:54)
[2017-04-02] MEDS: Metoprolol Tartrate TAB* 100 MG TAB PO SCH ×2 (07:40→21:55)
--- NOTE | 2017-04-02 09:21 | PN ---
Subjective Date of Service: 04/02/17 Interval History: Mr. Bowden denies complaint today including chest pain, SOB, lightheadedness, nausea, vomiting, or abdominal pain. Family History: Findings - F - colon cancer, M - bladder cancer Social History: Findings - No tobacco abuse, does not drink EtOH, no drug use Past Medical History: Findings - HTN, HLD, CAD s/p stent x 2 in [place], BPH Objective Active Medications: Aspirin (Aspirin Ec Low Dose*) 81 mg PO QPM LEIF Atorvastatin Calcium (Lipitor*) 20 mg PO QPM LEIF Bisacodyl (Dulcolax Supp*) 10 mg [place] DAILY PRN Cetirizine HCl (Zyrtec*) 10 mg PO QPM LEIF Diphenhydramine HCl (Benadryl Iv*) 12.5 mg IV Q6H PRN Diphenhydramine HCl (Benadryl Po*) 25 mg PO Q6H PRN Docusate Sodium (Colace Cap*) 100 mg PO BID LEIF Enoxaparin Sodium (Lovenox(*)) 30 mg SUBCUT Q24H LEIF Famotidine (Pepcid Tab*) 20 mg PO BID LEIF Finasteride (Proscar Tab*) 5 mg PO QPM LEIF Fluticasone Propionate (Flonase Nasal [place] 50mcg*) 2 spray BOTH NARES DAILY PRN Hydromorphone HCl (Dilaudid Iv*) 0.5 mg IV Q2H PRN Lactated Ringer's (Lactated Ringers 1000 Ml Bag*) 1,000 mls @ 100 mls/hr IV PER RATE LEIF Lactulose (Lactulose*) 30 ml PO Q6H PRN Magnesium Hydroxide (Milk Of Magnesia Liq*) 30 ml PO BID LEIF Metoprolol Tartrate (Lopressor Tab*) 100 mg PO BID LEIF Morphine Sulfate (Morphine Inj (Syringe)*) 5 mg IV Q2H PRN Multivitamins/Minerals (Theragran/Minerals Tab*) 1 tab PO QAM LEIF Nitroglycerin (Nitroglycerin Tab 0.4 Mg*) 0.4 mg SL Q5M PRN Ondansetron HCl (Zofran Inj*) 4 mg IV Q6H PRN Ondansetron HCl (Zofran Tab*) 4 mg PO Q6H PRN Oxycodone HCl (Roxycodone Tab*) 10 mg PO Q4H PRN Oxycodone/Acetaminophen (Percocet 5/325 Tab*) 2 tab PO Q3H PRN Oxycodone/Acetaminophen (Percocet 5/325 Tab*) 1 tab PO Q3H PRN Pharmacy Profile Note (Coumadin Daily Reminder*) 1 note FOLLOW UP 1700 [facility] Polyethylene Glycol/Electrolytes (Miralax*) 17 gm PO DAILY PRN Senna (Senokot Tab*) 2 tab PO BEDTIME PRN Tamsulosin HCl (Flomax Cap*) 0.4 mg PO QPM [facility] Warfarin Sodium (Coumadin Tab(*)) 6 mg PO ONCE@1700 [facility] Vital Signs 04/01/17 04/01/17 04/01/17 09:26 09:27 09:35 Temperature Pulse Rate 40 76 72 Respiratory 20 Rate Blood Pressure 155/64 (mmHg) O2 Sat by Pulse 98 97 98 Oximetry 04/01/17 04/01/17 04/01/17 09:38 09:46 09:58 Temperature Pulse Rate 77 74 40 Respiratory Rate Blood Pressure (mmHg) O2 Sat by Pulse 92 98 99 Oximetry 04/01/17 04/01/17 04/01/17 10:09 11:00 11:09 Temperature 98.4 F Pulse Rate 76 Respiratory 20 14 22 Rate Blood Pressure 155/63 (mmHg) O2 Sat by Pulse 100 Oximetry 04/01/17 04/01/17 04/01/17 11:23 13:23 13:26 Temperature Pulse Rate Respiratory 16 16 16 Rate Blood Pressure (mmHg) O2 Sat by Pulse Oximetry 04/01/17 04/01/17 04/01/17 14:26 16:00 16:01 Temperature 98.1 F Pulse Rate 74 Respiratory 16 24 Rate Blood Pressure 139/68 (mmHg) O2 Sat by Pulse 99 99 Oximetry 04/01/17 04/01/17 04/01/17 18:01 20:00 20:01 Temperature Pulse Rate Respiratory 16 18 18 Rate Blood Pressure (mmHg) O2 Sat by Pulse Oximetry 04/01/17 04/01/17 04/01/17 20:13 20:30 21:29 Temperature 98.8 F Pulse Rate 75 Respiratory 20 18 Rate Blood Pressure 121/57 (mmHg) O2 Sat by Pulse 95 94 Oximetry 04/01/17 04/02/17 04/02/17 23:29 00:00 03:39 Temperature 99.0 F Pulse Rate 64 Respiratory 16 16 20 Rate Blood Pressure 113/54 (mmHg) O2 Sat by Pulse 94 Oximetry 04/02/17 04/02/17 04/02/17 04:11 07:32 07:40 Temperature 99.5 F 100.3 F Pulse Rate 38 73 Respiratory 18 18 17 Rate Blood Pressure 123/37 135/56 (mmHg) O2 Sat by Pulse 90 100 Oximetry 04/02/17 07:55 Temperature Pulse Rate Respiratory 17 Rate Blood Pressure (mmHg) O2 Sat by Pulse Oximetry Oxygen Devices in Use Now: None Appearance: Male sitting up in bed in NAD Eyes: No Scleral Icterus Ears/Nose/Mouth/Throat: Mucous Membranes Moist Neck: Trachea Midline Respiratory: Symmetrical Chest Expansion and Respiratory Effort, Clear to Auscultation Cardiovascular: NL Sounds; No Murmurs; No JVD, No Edema Abdominal: NL Sounds; No Tenderness; No Distention Extremities: No Edema Skin: No Rash or Ulcers Neurological: Alert and Oriented x 3, NL Muscle Strength and Tone Nutrition: Taking PO's Result Diagrams: 04/02/17 06:34 04/02/17 06:34 Diagnostic Imaging: EKG - bigeminy Assess/Plan/Problems-Billing Mr. Bowden is a 71 yo M with hx of HTN, HLD, CAD s/p stent x2, BPH s/p L TKA by Dr. Corea on 03/31/17. - Patient Problems (1) Dysrhythmia Comment: Resolved. Had symptomatic bradycardia with bigeminy on EKG yesterday. Question if related to nausea and vomiting with vasovagal response. Mag repleted. (2) Status post total left knee replacement Comment: POD # 2. Management per ortho. (3) HTN (hypertension) Comment: Normotensive. Resume lisinopril and continue metoprolol. (4) BPH (benign prostatic hyperplasia) Comment: Cont finasteride and tamsulosin (5) CAD (coronary artery disease) Comment: Asymptomatic. Cont ASA and BB, Plavix held preoperatively, resume when directed per ortho. (6) DVT prophylaxis Comment: Coumadin bridged with Lovenox per ortho (7) Full code status Status and Disposition: Inpatient. Transfer back to [facility].
[2017-04-02] MEDS: oxyCODONE TAB* 5 MG TAB PO PRN (10:23)
[2017-04-02] MEDS: Enoxaparin(*) 30 MG/0.3 ML SYR SUBCUT SCH (13:07)
[2017-04-02] MEDS: HYDROmorphone* 1 MG/ML 1 ML SYR IV PRN (15:02)
[2017-04-02] MEDS: Cetirizine* 10 MG TAB PO SCH (16:50)
[2017-04-02] MEDS: Finasteride TAB* 5 MG PO SCH (16:50)
[2017-04-02] MEDS: Aspirin EC Low Dose* 81 MG TAB.EC PO SCH (16:50)
[2017-04-02] MEDS: Tamsulosin CAP* 0.4 MG PO SCH (16:50)
[2017-04-02] MEDS: Atorvastatin* 20 MG TAB PO SCH (16:50)
[2017-04-02] MEDS ORDERED: Warfarin TAB(*) 4 MG PO ONE (17:00)
[2017-04-02] MEDS ORDERED: Warfarin TAB(*) 6 MG PO SCH (17:00)
[2017-04-03] MEDS: oxyCODONE/Acetamin 5/325 MG* TAB PO PRN ×5 (03:37→23:45)
[2017-04-03 06:11] LABS: Hematocrit 27 % (42-52); Hemoglobin 9.2 g/dl (14.0-18.0)
--- NOTE | 2017-04-03 08:30 | PN ---
Progress Note - Progress Note SOAP: Subjective: 71 y/o male s/p L TKA POD#[address] Corea. Complicated by bradycardia, monitored in ICU post-op. Patient reports feeling confused, concerned about "losing a day" post-operatively. Denies SOB, chest pain. Difficulty standing/ working with PT. Objective: General- Resting in chair comfortably, NAD MSK dressing removed, incision c/d/i, minimal erythema distal portion of wound, re-dressed, neg homans sign, sensation intact b/l, + df/pf bl ankles. Laboratory Results - last 24 hr 04/03/17 04/03/17 05:44 05:44 Hgb 9.2 L Hct 27 L INR (Anticoag Therapy) 1.95 H Vital Signs Temp 97.9 F 04/03/17 07:45 Pulse 83 04/03/17 07:45 Resp 13 04/03/17 07:45 BP 124/55 04/03/17 07:45 Pulse Ox 96 04/03/17 07:45 Intake & Output 04/02/17 04/03/17 04/03/17 18:59 06:59 18:59 Intake Total 1413 525 Output Total 50 730 Balance 1363 -205 Intake: IV Fluids 613 LR 613 Oral 800 525 Output: Urine 730 Londono 50 Other: Estimated Void Large Date of Last Bowel 04/03/17 Movement # Bowel Movements 1 Estimated Stool Amount Large # Voids 1 Assessment: 71 y/o male s/p L TKA POD#[address] Corea. Plan: - Likely D/C to rehab - DVT prophy- coumadin 3mg tonight, D/C lovenox- theraputic. HOld Plavix until D/Cd coumadin Active Medications Generic Name Dose Route Start Last Admin Trade Name Freq PRN Reason Stop Dose Admin Aspirin 81 mg 03/31/17 18:00 04/02/17 16:50 Aspirin Ec Low Dose* PO 81 mg QPM LEIF Administration Atorvastatin Calcium 20 mg 03/31/17 18:00 04/02/17 16:50 Lipitor* PO 20 mg QPM LEIF Administration Bisacodyl 10 mg 03/31/17 12:20 Dulcolax Supp* MT DAILY PRN constipation Cetirizine HCl 10 mg 03/31/17 18:00 04/02/17 16:50 Zyrtec* PO 10 mg QPM LEIF Administration Diphenhydramine HCl 12.5 mg 03/31/17 12:13 Benadryl Iv* IV Q6H PRN PRURITIS Diphenhydramine HCl 25 mg 03/31/17 12:13 Benadryl Po* PO Q6H PRN INSOMNIA Docusate Sodium 100 mg 03/31/17 21:00 04/02/17 21:54 Colace Cap* PO 100 mg BID LEIF Administration Enoxaparin Sodium 30 mg 04/01/17 13:00 04/02/17 13:07 Lovenox(*) SUBCUT 30 mg Q24H LEIF Administration Famotidine 20 mg 03/31/17 21:00 04/02/17 21:54 Pepcid Tab* PO 20 mg BID LEIF Administration Finasteride 5 mg 03/31/17 18:00 04/02/17 16:50 Proscar Tab* PO 5 mg QPM LEIF Administration Fluticasone Propionate 2 spray 03/31/17 12:24 Flonase Nasal [place] 50mcg* BOTH NARES DAILY PRN Allergy Symptoms Hydromorphone HCl 0.5 mg 03/31/17 22:34 04/02/17 15:02 Dilaudid Iv* IV 0.5 mg Q2H PRN Administration PAIN - SEVERE Lactulose 30 ml 03/31/17 12:20 Lactulose* PO Q6H PRN constipation Lisinopril 2.5 mg 04/03/17 09:00 Prinivil Tab* PO DAILY LEIF Magnesium Hydroxide 30 ml 03/31/17 21:00 04/02/17 21:52 Milk Of Magnesia Liq* PO 30 ml BID LEIF Administration Metoprolol Tartrate 100 mg 04/01/17 21:00 04/02/17 21:55 Lopressor Tab* PO 100 mg BID LEIF Administration Morphine Sulfate 5 mg 03/31/17 12:13 03/31/17 20:07 Morphine Inj (Syringe)* IV 5 mg Q2H PRN Administration PAIN Multivitamins/Minerals 1 tab 04/01/17 09:00 04/02/17 07:38 Theragran/Minerals Tab* PO 1 tab QAM LEIF Administration Nitroglycerin 0.4 mg 03/31/17 12:24 Nitroglycerin Tab 0.4 Mg* SL Q5M PRN chest pain Ondansetron HCl 4 mg 03/31/17 12:13 03/31/17 21:55 Zofran Inj* IV 4 mg Q6H PRN Administration nausea Ondansetron HCl 4 mg 03/31/17 12:13 04/01/17 18:01 Zofran Tab* PO 4 mg Q6H PRN Administration NAUSEA Oxycodone HCl 10 mg 03/31/17 12:13 04/02/17 10:23 Roxycodone Tab* PO 10 mg Q4H PRN Administration breakthru pain Oxycodone/Acetaminophen 2 tab 03/31/17 12:13 04/03/17 03:37 Percocet 5/325 Tab* PO 2 tab Q3H PRN Administration PAIN - MODERATE Oxycodone/Acetaminophen 1 tab 03/31/17 12:27 04/02/17 13:06 Percocet 5/325 Tab* PO 1 tab Q3H PRN Administration PAIN - MODERATE Pharmacy Profile Note 1 note 04/02/17 17:00 04/02/17 16:50 Coumadin Daily Reminder* FOLLOW UP 1 note 1700 LEIF Administration Polyethylene Glycol/Electrolytes 17 gm 03/31/17 12:20 Miralax* PO DAILY PRN Constipation Senna 2 tab 04/01/17 09:21 Senokot Tab* PO BEDTIME PRN CONSTIPATION Tamsulosin HCl 0.4 mg 03/31/17 18:00 04/02/17 16:50 Flomax Cap* PO 0.4 mg QPM LEIF Administration
[2017-04-03] MEDS: Famotidine TAB* 20 MG PO SCH ×2 (08:41→20:43)
[2017-04-03] MEDS: Multivitamins/Minerals TAB PO SCH (08:41)
[2017-04-03] MEDS: Lisinopril TAB* 5 MG PO SCH (08:41)
[2017-04-03] MEDS: Metoprolol Tartrate TAB* 100 MG TAB PO SCH ×2 (08:41→20:44)
[2017-04-03] MEDS: Magnesium Hydroxide LIQ* 30 ML UDC PO SCH ×2 (08:42→20:40)
[2017-04-03] MEDS: Docusate CAP* 100 MG PO SCH ×2 (08:42→20:39)
--- NOTE | 2017-04-03 15:40 | PN ---
Subjective Date of Service: 04/03/17 Interval History: Mr. Bowden reports some pain in his left knee but denies complaint otherwise. He specifically denies chest pain, SOB, nausea, or abdominal pain. Family History: Findings - F - colon cancer, M - bladder cancer Social History: Findings - No tobacco abuse, does not drink EtOH, no drug use Past Medical History: Findings - HTN, HLD, CAD s/p stent x 2 in [place], BPH Objective Active Medications: Aspirin (Aspirin Ec Low Dose*) [address] [facility] Last Admin: 04/02/17 16:50 Dose: 81 mg Atorvastatin Calcium (Lipitor*) [address] [facility] Last Admin: 04/02/17 16:50 Dose: 20 mg Bisacodyl (Dulcolax Supp*) 10 mg HI DAILY PRN PRN Reason: constipation Cetirizine HCl (Zyrtec*) [address] [facility] Last Admin: 04/02/17 16:50 Dose: 10 mg Diphenhydramine HCl (Benadryl Iv*) 12.5 mg IV Q6H PRN PRN Reason: PRURITIS Diphenhydramine HCl (Benadryl Po*) 25 mg PO Q6H PRN PRN Reason: INSOMNIA Docusate Sodium (Colace Cap*) [address] [facility] Last Admin: 04/03/17 08:42 Dose: Not Given Famotidine (Pepcid Tab*) [address] [facility] Last Admin: 04/03/17 08:41 Dose: 20 mg Finasteride (Proscar Tab*) [address] [facility] Last Admin: 04/02/17 16:50 Dose: 5 mg Fluticasone Propionate (Flonase Nasal [place] 50mcg*) 2 spray BOTH NARES DAILY PRN PRN Reason: Allergy Symptoms Hydromorphone HCl (Dilaudid Iv*) 0.5 mg IV Q2H PRN PRN Reason: PAIN - SEVERE Last Admin: 04/02/17 15:02 Dose: 0.5 mg Lactulose (Lactulose*) 30 ml PO Q6H PRN PRN Reason: constipation Lisinopril (Prinivil Tab*) 2.[address] [facility] Last Admin: 04/03/17 08:41 Dose: 2.5 mg Magnesium Hydroxide (Milk Of Magnesia Liq*) [address] [facility] Last Admin: 04/03/17 08:42 Dose: Not Given Metoprolol Tartrate (Lopressor Tab*) [address] [facility] Last Admin: 04/03/17 08:41 Dose: 100 mg Morphine Sulfate (Morphine Inj (Syringe)*) 5 mg IV Q2H PRN PRN Reason: PAIN Last Admin: 03/31/17 20:07 Dose: 5 mg Multivitamins/Minerals (Theragran/Minerals Tab*) [address] [facility] Last Admin: 04/03/17 08:41 Dose: 1 tab Nitroglycerin (Nitroglycerin Tab 0.4 Mg*) 0.4 mg SL Q5M PRN PRN Reason: chest pain Ondansetron HCl (Zofran Inj*) 4 mg IV Q6H PRN PRN Reason: nausea Last Admin: 03/31/17 21:55 Dose: 4 mg Ondansetron HCl (Zofran Tab*) 4 mg PO Q6H PRN PRN Reason: NAUSEA Last Admin: 04/01/17 18:01 Dose: 4 mg Oxycodone HCl (Roxycodone Tab*) 10 mg PO Q4H PRN PRN Reason: breakthru pain Last Admin: 04/02/17 10:23 Dose: 10 mg Oxycodone/Acetaminophen (Percocet 5/325 Tab*) 2 tab PO Q3H PRN PRN Reason: PAIN - MODERATE Last Admin: 04/03/17 12:41 Dose: 2 tab Oxycodone/Acetaminophen (Percocet 5/325 Tab*) 1 tab PO Q3H PRN PRN Reason: PAIN - MODERATE Last Admin: 04/02/17 13:06 Dose: 1 tab Pharmacy Profile Note (Coumadin Daily Reminder*) 1 note [address] UP [address]00 [facility] Last Admin: 04/02/17 16:50 Dose: 1 note Polyethylene Glycol/Electrolytes (Miralax*) 17 gm PO DAILY PRN PRN Reason: Constipation Senna (Senokot Tab*) 2 tab PO BEDTIME PRN PRN Reason: CONSTIPATION Tamsulosin HCl (Flomax Cap*) 0.[address] [facility] Last Admin: 04/02/17 16:50 Dose: 0.4 mg Warfarin Sodium (Coumadin Tab(*)) 3 mg PO ONCE@1700 ONE PRN Reason: Protocol Stop: 04/03/17 17:01 Vital Signs 04/02/17 04/02/17 04/02/17 16:02 16:52 18:52 Temperature Pulse Rate Respiratory 16 16 16 Rate Blood Pressure (mmHg) O2 Sat by Pulse Oximetry 04/02/17 04/02/17 04/02/17 19:26 21:05 21:54 Temperature 98.0 F Pulse Rate 110 Respiratory 16 16 16 Rate Blood Pressure 123/49 (mmHg) O2 Sat by Pulse 97 Oximetry 04/02/17 04/02/17 04/02/17 21:55 23:37 23:54 Temperature 98.6 F Pulse Rate 49 93 Respiratory 16 16 Rate Blood Pressure 122/64 130/62 (mmHg) O2 Sat by Pulse 100 96 Oximetry 04/03/17 04/03/17 04/03/17 03:32 03:37 05:37 Temperature 98.0 F Pulse Rate 75 Respiratory 18 16 16 Rate Blood Pressure 130/71 (mmHg) O2 Sat by Pulse 94 Oximetry 04/03/17 04/03/17 04/03/17 07:45 07:54 08:41 Temperature 97.9 F Pulse Rate 83 Respiratory 13 18 18 Rate Blood Pressure 124/55 (mmHg) O2 Sat by Pulse 96 96 Oximetry 04/03/17 04/03/17 04/03/17 09:53 10:41 12:09 Temperature 98.0 F Pulse Rate 70 Respiratory 16 13 Rate Blood Pressure 120/58 (mmHg) O2 Sat by Pulse 96 98 Oximetry 04/03/17 12:41 Temperature Pulse Rate Respiratory 18 Rate Blood Pressure (mmHg) O2 Sat by Pulse Oximetry Oxygen Devices in Use Now: None Appearance: Male sitting up in chair in NAD Eyes: No Scleral Icterus Ears/Nose/Mouth/Throat: Mucous Membranes Moist Neck: Trachea Midline Respiratory: Symmetrical Chest Expansion and Respiratory Effort, Clear to Auscultation Cardiovascular: NL Sounds; No Murmurs; No JVD, No Edema Abdominal: NL Sounds; No Tenderness; No Distention Lymphatic: No Cervical Adenopathy Extremities: No Edema Skin: No Rash or Ulcers, - - L knee wrapped with cryounit Neurological: Alert and Oriented x 3, NL Muscle Strength and Tone Nutrition: Taking PO's Result Diagrams: 04/03/17 05:44 04/02/17 06:34 Diagnostic Imaging: EKG - bigeminy Assess/Plan/Problems-Billing Mr. Bowden is a 71 yo M with hx of HTN, HLD, CAD s/p stent x2, BPH s/p L TKA by Dr. Corea on 03/31/17. - Patient Problems (1) Dysrhythmia Comment: Resolved. Had symptomatic bradycardia with bigeminy. Question if related to nausea and vomiting with vasovagal response. Mag repleted. (2) Status post total left knee replacement Comment: POD # 3. Management per ortho. (3) HTN (hypertension) Comment: Normotensive. Continue lisinopril and metoprolol. (4) BPH (benign prostatic hyperplasia) Comment: Cont finasteride and tamsulosin (5) CAD (coronary artery disease) Comment: Asymptomatic. Cont ASA and BB, Plavix held preoperatively, resume when directed per ortho. (6) DVT prophylaxis Comment: Coumadin bridged with Lovenox per ortho (7) Full code status Status and Disposition: Inpatient. Disposition per ortho. Will sign off for now but please do not hesitate to contact the Hospital Medicine team if further questions or concerns arise.
[2017-04-03] MEDS: Tamsulosin CAP* 0.4 MG PO SCH (16:56)
[2017-04-03] MEDS: Atorvastatin* 20 MG TAB PO SCH (16:56)
[2017-04-03] MEDS: Aspirin EC Low Dose* 81 MG TAB.EC PO SCH (16:57)
[2017-04-03] MEDS: Cetirizine* 10 MG TAB PO SCH (16:57)
[2017-04-03] MEDS: Finasteride TAB* 5 MG PO SCH (16:57)
[2017-04-03] MEDS ORDERED: Warfarin TAB(*) 3 MG PO ONE (17:00)
[2017-04-04 07:19] LABS: Hematocrit 27 % (42-52); Hemoglobin 8.8 g/dl (14.0-18.0)
--- NOTE | 2017-04-04 07:48 | PN ---
Progress Note - Progress Note SOAP: Subjective: [Pt reports feeling better today than yesterday but not sure if he's ready to go home due to mobility concerns. Minimal pain at rest. L knee pain increases to 5-6/10 with movement. Denies CP, SOB, dizziness. Has had BM. Has been OOB walking with PT but has not yet done stairs.] Objective: [A and O x3, NAD L knee dressing C/D/I Cryounit and SCDs in place. L foot with 2+ pitting edema. Calves soft, NT. Distal gross motor intact. DP pulse palpable. Vital Signs: Temp Pulse Resp BP Pulse Ox 99.0 F 84 14 136/53 99 04/04/17 07:23 04/04/17 07:23 04/04/17 07:23 04/04/17 07:23 04/04/17 07:23 Laboratory Results - last 24 hr 04/04/17 04/04/17 06:44 06:44 Hgb 8.8 L Hct 27 L INR (Anticoag Therapy) 1.70 H ] Assessment: [71 yo male s/p L TKA POD #4] Plan: [PT - stairs Elevate LLE 2 pillows under heel/lower leg Coumadin 5 mg today Plan to D/C home later today after PT]
[2017-04-04] MEDS: Famotidine TAB* 20 MG PO SCH ×2 (08:14→21:20)
[2017-04-04] MEDS: oxyCODONE/Acetamin 5/325 MG* TAB PO PRN ×4 (08:14→19:29)
[2017-04-04] MEDS: Metoprolol Tartrate TAB* 100 MG TAB PO SCH ×2 (08:15→21:20)
[2017-04-04] MEDS: Lisinopril TAB* 5 MG PO SCH (08:15)
[2017-04-04] MEDS: Multivitamins/Minerals TAB PO SCH (08:15)
[2017-04-04] MEDS: Docusate CAP* 100 MG PO SCH ×2 (08:16→21:20)
[2017-04-04] MEDS: Magnesium Hydroxide LIQ* 30 ML UDC PO SCH ×2 (08:16→21:19)
[2017-04-04] MEDS: oxyCODONE TAB* 5 MG TAB PO PRN (09:56)
[2017-04-04] MEDS: Tamsulosin CAP* 0.4 MG PO SCH (16:30)
[2017-04-04] MEDS: Cetirizine* 10 MG TAB PO SCH (16:30)
[2017-04-04] MEDS: Finasteride TAB* 5 MG PO SCH (16:30)
[2017-04-04] MEDS: Aspirin EC Low Dose* 81 MG TAB.EC PO SCH (16:30)
[2017-04-04] MEDS: Atorvastatin* 20 MG TAB PO SCH (16:30)
[2017-04-04] MEDS ORDERED: Warfarin TAB(*) 5 MG PO ONE (17:00)
[2017-04-05 08:04] VITALS: BP 132/61
[2017-04-05] MEDS: oxyCODONE/Acetamin 5/325 MG* TAB PO PRN ×2 (08:05→12:02)
[2017-04-05] MEDS: Metoprolol Tartrate TAB* 100 MG TAB PO SCH (08:05)
[2017-04-05] MEDS: Multivitamins/Minerals TAB PO SCH (08:05)
[2017-04-05] MEDS: Magnesium Hydroxide LIQ* 30 ML UDC PO SCH (08:06)
[2017-04-05] MEDS: Famotidine TAB* 20 MG PO SCH (08:06)
[2017-04-05] MEDS: Docusate CAP* 100 MG PO SCH (08:06)
[2017-04-05] MEDS: Lisinopril TAB* 5 MG PO SCH (08:06)
[2017-04-05 08:34] LABS: Hematocrit 28 % (42-52); Hemoglobin 9.1 g/dl (14.0-18.0)
--- NOTE | 2017-04-05 09:29 | PN ---
Progress Note - Progress Note SOAP: Subjective: [Pt. reports L knee pain can get up to 10/10 with activity. But fairly well controlled with po meds. PT going well. Has done stairs. Feels ready to go home.] Objective: [A and O x 3, NAD. In recliner appearing comfortable. L knee dressing C/D/I. L calf/foot with mild/mod edema. Compressible, calf NT. 2+ DP pulse. Resolving ecchymosis. Gross motor and NV function intact. Vital Signs: Temp Pulse Resp BP Pulse Ox 99.3 F 87 18 132/61 95 04/05/17 07:25 04/05/17 07:25 04/05/17 08:05 04/05/17 07:25 04/05/17 07:50 Laboratory Results - last 24 hr 04/05/17 04/05/17 07:30 07:30 Hgb 9.1 L Hct 28 L INR (Anticoag Therapy) 1.96 H ] Assessment: [71 yo male s/p L TKA POD #5] Plan: [4 mg Coumadin today PT D/C home today with services after PT session. F/U with Dr. Corea 2 weeks]
--- NOTE | 2017-04-06 07:34 | DS ---
DISCHARGE SUMMARY: DATE OF ADMISSION: 03/31/17 DATE OF DISCHARGE: 04/05/17 PROVIDER: Dejah Corea MD ADMITTING PHYSICIAN: Dejah Corea MD ADMITTING DIAGNOSES: 1. Left knee osteoarthritis. 2. History of myocardial infarction. 3. Coronary artery disease. 4. Hyperlipidemia. 5. Hypertension. 6. Benign prostatic hyperplasia. 7. Squamous cell carcinoma of the face. DISCHARGE DIAGNOSES: 1. Status post left total knee arthroplasty. 2. History of myocardial infarction. 3. Coronary artery disease. 4. Hyperlipidemia. 5. Hypertension. 6. Benign prostatic hyperplasia. 7. Squamous cell carcinoma of the face. PROCEDURE: Left total knee arthroplasty. CONSULTANTS: 1. Physical Therapy. 2. Occupational Therapy. 3. Medicine. BRIEF HISTORY: Mr. Bowden is a 71-year-old male with severe degenerative osteoarthritis of his left knee. He failed conservative treatment measures and elected to undergo a left total knee arthroplasty on 03/31/[address] Corea. HOSPITAL COURSE: Mr. Bowden was admitted to [facility] on 03/31/17. He underwent an uncomplicated left total knee arthroplasty. Postoperatively, day 1, he recovered on short-stay surgical unit. Later on postoperative day 1, the patient was transferred to telemetry with symptomatic bradycardia and bigeminy per Medicine. After stabilization, he was transferred back to the floor on postop day 2, 04/02/17. His Londono catheter was removed and he was able to urinate on his own. On postoperative day 2, he was able to have a bowel movement and advanced to a regular diet with-out difficulty. His pain was well controlled with Percocet. His vital signs and labs then remained stable. He progressed with physical therapy slowly, but appropriately and was able to bear weight on the left lower extremity and managed stairs. His DVT prophylaxis was bridged with Lovenox and Coumadin until he reached therapeutic INR range when the Lovenox was discontinued and Coumadin was administered. By postoperative day #5, he was orthopedically and medically stable for discharge home with services. PHYSICAL EXAMINATION: General: On examination, the patient is noted to be calm and cooperative, in no acute distress. He is alert and oriented x3. Vital Signs: On day of discharge, temperature 99.3 degrees Fahrenheit, pulse rate 87, respiratory rate 16, O2 sat 95% on room air, blood pressure 132/61. Extremities: Examination of his left lower extremity demonstrates dressing over the left knee, which is clean, dry, and intact. There is [id number] swelling distally in the calf, ankle, and foot; however, calf is compressible and is nontender to palpation. There is resolving ecchymosis along the left lower extremity. He has +2 palpable dorsalis pedis pulse and has good gross motor function dorsally at the ankle as well as active motion in the left knee. Sensation is intact throughout the left lower extremity. DIAGNOSTIC STUDIES/LAB DATA: On day of discharge: Hemoglobin 9.1, hematocrit 28. INR 1.96. Postoperative radiographs of the left knee demonstrate a left total knee arthroplasty with satisfactory prosthesis placement and no acute bony abnormalities. DISCHARGE MEDICATIONS: 1. Lisinopril 2.5 mg daily. 2. Metoprolol 75 mg b.i.d. 3. Ocuvite 1 cap p.o. q.a.m. 4. Nitrostat 0.4 mg q.5 minutes p.r.n. 5. Simvastatin 40 mg daily. 6. Famotidine 20 mg daily. 7. Loratadine 10 mg daily. 8. Finasteride 5 mg daily. 9. Tamsulosin 0.4 mg q.p.m. 10. Fluticasone 2 sprays bilateral nares daily. 11. Percocet 5/325 one to two tabs p.o.q.4 to 6 hours p.r.n. pain. 12. Coumadin 2 mg tablets p.o. take as directed. 13. Colace 100 mg p.o. t.i.d. p.r.n. constipation. The patient was prescribed NIRAJ stockings to help control swelling. CONDITION ON DISCHARGE: Stable. DISCHARGE INSTRUCTIONS: Mr. Bowden is a 71-year-old male, postoperative day #5, status post left total knee arthroplasty, which was uncomplicated. He is orthopedically and medically stable to be discharged home with services. He has stable vital signs and labs. He will restart home medications. He will take 4 mg of Coumadin on Thursday night, 04/05/17. He will have his INR rechecked on Thursday. He will have INR draws on Mondays and with visiting nurse services. He will remain weightbearing as tolerated on the left lower extremity and have home physical therapy twice a day. He will take Percocet for pain control and Colace up to 3 times a day for constipation. He will follow up in the office with Dr. Corea in 10 to 14 days for incision check and suture removal. He was instructed to call Dr. Corea or go immediately to the ER should he develop any new fevers, chills, incision pain, redness, or drainage, and instructed to go immediately to the ER should he develop chest pain or shortness of breath. STACY MACIEL [id number]/[facility] #: [id number]
== END 2017-04-05 12:40 | disposition home health service (06) | DRG 470 ==
LOC: AA 07:03 → SSU 14:39 → MEDTELE 04-01 10:50 → SSU 04-02 13:51
PROVIDERS: ADMIT Orthopaedic Surgery Adult Reconstructive Orthopaedic Surgery; ATTEND Orthopaedic Surgery Adult Reconstructive Orthopaedic Surgery
PROC: 0SRD0J9 Replacement of Left Knee Joint with Synthetic Substitute, Cemented, Open Approach (ICD-10-PCS; principal; 2017-03-31 08:30)
DX: M17.12 Unilateral primary osteoarthritis, left knee (principal); D64.9 Anemia, unspecified; R00.1 Bradycardia, unspecified; I10 Essential (primary) hypertension; I25.2 Old myocardial infarction; I25.10 Atherosclerotic heart disease of native coronary artery without angina pectoris; E78.5 Hyperlipidemia, unspecified; N40.0 Benign prostatic hyperplasia without lower urinary tract symptoms; Z79.01 Long term (current) use of anticoagulants; Z85.828 Personal history of other malignant neoplasm of skin; Z96.651 Presence of right artificial knee joint; Z95.5 Presence of coronary angioplasty implant and graft; Z88.1 Allergy status to other antibiotic agents; Z80.0 Family history of malignant neoplasm of digestive organs; Z80.52 Family history of malignant neoplasm of bladder; R11.10 Vomiting, unspecified; K21.9 Gastro-esophageal reflux disease without esophagitis; Z88.8 Allergy status to other drugs, medicaments and biological substances; Z88.2 Allergy status to sulfonamides; Z91.018 Allergy to other foods
CPT/HCPCS: 36415; 80048; 81003; 83735; 85014; 85018; 85610; 88305; 88311; 93005; 94760; A9270-GY; C1776; J0330; J0690; J1170; J1650; J2250; J2270; J2405; J2704; J3010

== ENCOUNTER 2019-09-09 13:41 | Inpatient (IN) | payer MEDICARE ==
[2019-09-09] MEDS ORDERED: cefTRIAXone(*) 2 GM in NS 0.9% 50 ML* 50 ML IVPB ONE (13:46)
--- OUTSIDE RECORDS SUMMARY | 2019-09-09 13:58 | XMS REPORT | Continuity of Care Document ---
:1945 External Reference #:[id number] Author Name Chuy Watt M.D. (transmitted by agent of provider Trista Starkey) Address [address] [place] [address] Care Team Providers Name Role Phone Nora Owens MD - Internal Care Team Information Community Engagement Manager Medicine Cody Ceballos MD - Care Team Information Community Engagement Manager [phone] Otolaryngology Problems Active Problems Provider Date Chronic ischemic heart disease Zach Linares M.D., [facility], [facility] Onset: 2012 Essential hypertension Zach Linares M.D., [facility] Onset: 09/27/2013 Hyperlipidemia Zach Linares M.D., [facility] Onset: 09/27/2013 Obesity Zach Linares M.D., [facility] Onset: 01/10/2015 Localized, primary osteoarthritis Dejah Corea M.D. Onset: 03/31/2016 Benign prostatic hypertrophy without Juan F Solano M.D. Onset: 08/27/2016 outflow obstruction Convalescence after surgery Orestes Dickerson M.D. Onset: 04/13/2017 Arthroplasty of knee Dejah Corea M.D. Onset: 05/25/2017 Atherosclerotic heart disease of Zach Linares M.D., [facility], [facility] Onset: 2016 [place] coronary artery without angina pectoris Social History Type Date Description Comments Sex Unknown Tobacco Use Start: Unknown Never Smoked Cigarettes Smoking Status Reviewed: 08/03/19 Never Smoked Cigarettes ETOH Use Denies alcohol use Tobacco Use Start: Unknown Patient has never smoked Recreational Drug Use Denies Drug Use Exercise Type/Frequency Exercises sporadically Pt 2 days a week after knee replacement. Allergies, Adverse Reactions, Alerts Active Allergies Reaction Severity Comments Date Bactrim Nausea and Vomiting 01/26/2017 Amoxicillin vomiting, Keflex OK 04/16/2018 Inactive Allergies NKDA 09/27/2013 Medications Active Medications SIG Qnty Indications Ordering Provider Date Furosemide 1 by mouth every 90tabs I10 Chuy Watt, 08/03/2019 20mg day M.D. Tablets Diclofenac Sodium apply up to 2 100units M19.049 [facility], 2018 grams four times M.D. 1% Gel daily as needed to the painful joints in the hands Clindamycin HCL 2 capsules PO one 2caps [facility], 08/17/2018 hour prior to M.D. 300mg Capsules procedure Protonix 1 by mouth every 90tabs R12 [facility], 04/16/2018 40mg morning before M.D. Tablets DR breakfast Compression - lle 1units M25.561 Dejahramon Corea, 10/24/2016 Stockings [facility]/ed[facility] Clopidogrel 1 by mouth every 90tabs Chuy Watt, 04/11/2014 Bisulfate day M.D. 75mg Tablets Nitrostat one sl q5min up 25tabs Chuy Watt, 09/26/2013 0.4mg to 3 doses as M.D. Tablets Sub needed, if no relief call 911 Lisinopril 1 tab by mouth 90tabs Chuy Watt, 09/28/2012 2.5mg every day M.D. Tablets Simvastatin 1 tab by mouth 90tabs Nora Roman, 09/28/2012 40mg every night M.D. Tablets Metoprolol Tartrate 1 1/2 pills daily Unknown 75mg Tablets Tylenol Extra 2 po every 8 Unknown Stenght hours as needed Centrum Men 50+ 1 po daily Unknown Fluticasone 2 sprays each 16gm [facility], Propionate nostril daily as M.D. needed 50mcg/Act Suspension Aspirin 1 po qd 100tabs Unknown 81mg Tablets Ocuvite Adult 50+ 1 po qd Unknown Capsules Loratadine 1 po qd 30tabs Unknown 10mg Tablets Finasteride 1 po qd 90tabs Unknown 5mg Tablets Tamsulosin HCL 2 po qd 90caps Unknown 0.4mg Capsules Medications Administered in Office Medication SIG Qnty Indications Ordering Provider Date Shingrix pharmacy administered Unknown 06/01/2019 Injection Depomedrol 80MG Emili Spencer M.D. 09/07/2014 Injection Synvisc Or Synvisc-One Adi Feliz M.D. 06/20/2011 Injection 1 MG Injection Immunizations CPT Code Status Date Vaccine Lot # [id number] Given 08/17/2017 Influenza Virus Vaccine, Quadrivalent, Split, Preservative Free [id number] Given 07/01/2016 Influenza Virus Vaccine, Quadrivalent, Split, Preservative Free Vital Signs Date Vital Result Comment 08/03/2019 10:14am Height 71.5 inches 5'11.50" Weight 250.50 lb Heart Rate 60 /min BP Systolic Sitting 122 mmHg Lue reg cuff BP Diastolic Sitting 60 mmHg Lue reg cuff BP Systolic Standing 110 mmHg Lue reg cuff BP Diastolic Standing 68 mmHg Lue reg cuff Respiratory Rate 13 /min BMI (Body Mass Index) 34.4 kg/m2 Ejection Fraction 55-60% ECHO 07/07/2018 07/01/2019 2:39pm Height 71.5 inches 5'11.50" Weight 249.50 lb Heart Rate 66 /min BP Systolic 118 mmHg BP Diastolic 70 mmHg Respiratory Rate 12 /min Pain Level 1 BMI (Body Mass Index) 34.3 kg/m2 Results Test Date Facility Test Result H/L Range Note Lipid Profile 04/15/2019 [facility] Triglycerides 171 mg/dL 1 (Trig/Chol/HDL) [address] [place] [address] [phone] Cholesterol 134 mg/dL 2 HDL Cholesterol 41.5 mg/dL 3 LDL Cholesterol 58 mg/dL 4 Comp Metabolic 04/15/2019 [facility] Sodium 141 mmol/L Normal 135-145 Panel [address] [place] [address] [phone] Potassium 4.8 mmol/L Normal 3.5-5.0 Chloride 107 mmol/L Normal 101-111 Co2 Carbon Dioxide 30 mmol/L Normal 22-32 Anion Gap 4 mmol/L Normal 2-11 Glucose 110 mg/dL High 70-100 Blood Urea Nitrogen 16 mg/dL Normal 6-24 Creatinine 1.03 mg/dL Normal 0.67-1.17 BUN/Creatinine Ratio 15.5 Normal 8-20 Calcium 9.3 mg/dL Normal 8.6-10.3 Total Protein 6.4 g/dL Normal 6.4-8.9 Albumin 4.0 g/dL Normal 3.2-5.2 Globulin 2.4 g/dL Normal 2-4 Albumin/Globulin Ratio 1.7 Normal 1-3 Total Bilirubin 0.60 mg/dL Normal 0.2-1.0 Alkaline Phosphatase 57 U/L Normal 34-104 Alt 18 U/L Normal 7-52 Ast 21 U/L Normal 13-39 Egfr Non- 70.4 >60 Egfr 85.2 >60 5 Basic Metabolic 04/15/2019 [facility] Sodium 141 mmol/L Normal 135-[address] [place] [address] [phone] Potassium 4.9 mmol/L Normal 3.5-5.0 Chloride 107 mmol/L Normal 101-111 Co2 Carbon Dioxide 29 mmol/L Normal 22-32 Anion Gap 5 mmol/L Normal 2-11 Glucose 109 mg/dL High 70-100 Blood Urea Nitrogen 15 mg/dL Normal 6-24 Creatinine 1.04 mg/dL Normal 0.67-1.17 BUN/Creatinine Ratio 14.4 Normal 8-20 Calcium 9.1 mg/dL Normal 8.6-10.3 Egfr Non- 69.6 >60 Egfr 84.2 >60 6 Laboratory test 04/15/2019 [facility] PSA Diagnostic 1.008 Normal 0-4.000 [address] ng/[place] [address] [phone] 1 Desirable: <150 Borderline High: 150-199 High: 200-499 Very High: >500 2 Desirable: <200 Borderline High: 200-239 High: >239 3 Low: <40 Desirable: 40-60 High: >60 4 Desirable: <100 Near Optimal: 100-129 Borderline High: 130-159 High: 160-189 Very High: >189 5 Because ethnic data is not always readily available, this report includes an eGFR for both -Americans and non- Americans. The National Kidney Disease Education Program (NKDEP) does not endorse the use of the MDRD equation for patients that are not between the ages of 18 and 70, are , have extremes of body size, muscle mass, or nutritional status, or are non- or non-. According to the National Kidney Foundation, irrespective of diagnosis, the stage of the disease is based on the level of kidney function: Stage Description GFR(mL/min/1.73 m(2)) 1 Kidney damage with normal or decreased GFR 90 2 Kidney damage with mild decrease in GFR 60-89 3 Moderate decrease in GFR 30-59 4 Severe decrease in GFR 15-29 5 Kidney failure <15 (or dialysis) 6 Because ethnic data is not always readily available, this report includes an eGFR for both -Americans and non- Americans. The National Kidney Disease Education Program (NKDEP) does not endorse the use of the MDRD equation for patients that are not between the ages of 18 and 70, are , have extremes of body size, muscle mass, or nutritional status, or are non- or non-. According to the National Kidney Foundation, irrespective of diagnosis, the stage of the disease is based on the level of kidney function: Stage Description GFR(mL/min/1.73 m(2)) 1 Kidney damage with normal or decreased GFR 90 2 Kidney damage with mild decrease in GFR 60-89 3 Moderate decrease in GFR 30-59 4 Severe decrease in GFR 15-29 5 Kidney failure <15 (or dialysis) 7 Serum levels of PSA measured using the Yasemin Sentilla DXI Hybritech immunoassay should not be interpreted as absolute evidence of the presence or absence of disease. The PSA value should be used in conjunction with other pertinent clinical diagnostic procedures. The values obtained with different assay methods or kits cannot be used interchangeably. Procedures Date Code Description Status 08/03/2019 09789 EKG Tracing & Interpretation Completed 11/19/2018 [id number] Colonoscopy Completed 10/29/2017 [id number] Bone Mineral Density Test Completed 09/13/2013 [id number] Colonoscopy Completed Medical Devices Description No Information Available Encounters Type Date Location Provider Dx Diagnosis Office Visit 07/01/2019 [facility] Dejah Corea, Z96.652 Presence of left 2:30p at [facility].DKrzysztof artificial knee joint Z96.651 Presence of right artificial knee joint Z47.1 Aftercare following joint replacement surgery M25.661 Stiffness of right knee, not elsewhere classified M25.662 Stiffness of left knee, not elsewhere classified Office Visit 04/28/2019 10:40a [facility] Internal Nora I10 Essential ( primary) Medicine - Annalisa Owens hypertension Ccmob E78.5 Hyperlipidemia, unspecified Assessments Date Code Description Provider 08/03/2019 I10 Essential (primary) hypertension Chuy Watt M.D. 08/03/2019 E78.5 Hyperlipidemia, unspecified Chuy Watt M.D. 08/03/2019 I25.10 Atherosclerotic heart disease of [place] Chuy Watt M.D. coronary artery without angina pectoris 07/01/2019 Z96.652 Presence of left artificial knee joint Dejah Corea M.D. 07/01/2019 Z96.651 Presence of right artificial knee joint Dejah Corea M.D. 07/01/2019 Z47.1 Aftercare following joint replacement Dejah Corea M.D. surgery 07/01/2019 M25.661 Stiffness of right knee, not elsewhere Dejah Corea M.D. classified 07/01/2019 M25.662 Stiffness of left knee, not elsewhere Dejah Corea M.D. classified 04/28/2019 I10 Essential (primary) hypertension Nora Owens M.D. 04/28/2019 E78.5 Hyperlipidemia, unspecified Nora Owens M.D. Plan of Treatment Future Appointment(s):11/01/2019 11:00 am - [facility] Chuy Watt M.D.I10 Essential ( primary) hypertensionNew Medication:Furosemide 20 mg - 1 by mouth every dayFollow up:1 yearE78.5 Hyperlipidemia, sjrljgccxpkC84.10 Atherosclerotic heart disease of [place] coronary artery without angina pectoris Functional Status Description No Information Available Mental Status Description No Information Available Referrals Description No Information Available
--- NOTE | 2019-09-09 14:38 | ED ---
GI/ HPI - HPI Summary HPI Summary: The patient is a 73 y/o M presenting to [facility] with a chief complaint of dysuria onset two days ago and vomiting onset this morning. He reports that when the dysuria began and didnt relieve itself throughout the day, he called MELLO Martin, for an appointment yesterday. However, he was unable to get an appointment until today. This morning at 0420, he developed nausea and vomiting that persisted until around [id number]. He did go to Dr. Swan office, who noted a concern for prostatitis with urinalysis positive for UTI. Patient endorses a fever but denies any chest pain or shortness of breath. He rates his symptoms 5/10 in severity. He notes a similar episode of these symptoms 2.5 years ago. PMHx: BPH, recurrent bladder infections, CAD, HLD, HTN, OK. Nonsmoker , no EtOH, no substance use. Medications reviewed. Allergies noted. - History of Current Complaint Chief Complaint: EDUrogenitalProblems Time Seen by Provider: 09/09/19 13:45 Stated Complaint: VOMITING/ABD PAIN PER PT Hx Obtained From: Patient Onset/Duration: Started Days Ago - two, Still Present, Worse Since - this morning Timing: Lasting Days Severity: Mild Current Severity: Moderate Pain Intensity: 5 Pain Characteristics: Burning Associated Signs and Symptoms: Positive: Nausea, Vomiting, Fever, Dysuria. Negative: Chest Pain, Other: - shortness of breath - Additional Pertinent History Primary Care Physician: [id number] - Allergy/Home Medications Allergies/Adverse Reactions: Allergies Allergy/AdvReac Type Severity Reaction Status Date / Time Adhesive Tape Allergy Rash Verified 09/09/19 13:49 melon Allergy Itching Verified 09/09/19 16:02 strawberry Allergy Itching Verified 09/09/19 13:49 Sulfa (Sulfonamide Allergy Nausea And Verified 09/09/19 13:49 Antibiotics) Vomiting tramadol Allergy Nausea Verified 09/09/19 13:49 walnut Allergy Itching Verified 09/09/19 16:02 BANDAIDS Allergy Intermediate RED, ITCHY Uncoded 09/09/19 13:49 cantelopes Allergy Intermediate itchy mouth Uncoded 09/09/19 13:49 ELASTIC WAIST BANDS Allergy Intermediate ITCHY, RED Uncoded 09/09/19 13:49 ENVIRONMENT/SEASON HAYFEVER Allergy Intermediate STUFFY Uncoded 09/09/19 13:49 hay fever Allergy See Comment Uncoded 09/09/19 13:49 Home Medications: Home Medications Acetaminophen [Tylenol Extra Strength] 500 mg PO DAILY PRN 09/09/19 [History Confirmed 09/09/19] Aspirin EC TAB* [Ecotrin EC Low Dose 81 MG*] 81 mg PO DAILY 09/09/19 [History Confirmed 09/09/19] Diclofenac 1% GEL (NF) [Voltaren 1% GEL (NF)] 1 applic TOPICAL QID PRN 09/09/19 [History Confirmed 09/09/19] Furosemide TAB* [Lasix TAB*] 20 mg PO DAILY 09/09/19 [History Confirmed 09/09/19 ] Multivitamins/Minerals TAB* [Thera M Plus TAB*] 1 tab PO DAILY 09/09/19 [ History Confirmed 09/09/19] Nitroglycerin TAB 0.4 MG* 0.4 mg SL Q5M PRN 09/09/19 [History Confirmed 09/09/19 ] Simvastatin (NF) [Zocor (NF)] 40 mg PO DAILY 09/09/19 [History Confirmed ] Vit C/E/Zn/Coppr/Lutein/Zeaxan [Preservision Areds 2 Softgel] 1 each PO QAM [History Confirmed 09/09/19] PMH/Surg Hx/FS Hx/Imm Hx Endocrine/Hematology History: Denies: Hx Diabetes Cardiovascular History: Reports: Hx Angina, Hx Coronary Artery Disease - CHOLESTEROL CONTROL WITH MED, Hx Hypercholesterolemia, Hx Hypertension, Hx Myocardial Infarction, Other Cardiovascular Problems/Disorders - MEDICAL CLAIMS ANALYST - DR. FAUSTIN Denies: Hx Pacemaker/ICD Respiratory History: Denies: Hx Asthma, Hx Chronic Obstructive Pulmonary Disease (COPD) GI History: Reports: Other GI Disorders - PEPCID TO COUNTERACT SOME OF THE INGESTED MEDS History: Reports: Hx Benign Prostatic Hyperplasia, Other Problems/ Disorders - HX OF BLADDER INFECTIONS, NONE FOR ABOUT 2 YEARS Denies: Hx Renal Disease Musculoskeletal History: Reports: Hx Arthritis, Other Musculoskeletal History - Rt knee replacement Denies: Hx Scoliosis Sensory History: Reports: Hx Cataracts - BILAT, Hx Contacts or Glasses, Hx Hearing Aid Opthamlomology History: Reports: Hx Cataracts - BILAT, Hx Contacts or Glasses Neurological History: Denies: Hx Headaches Psychiatric History: Denies: Hx Panic Disorder - Cancer History Cancer Type, 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 2001 MOHS SURGERY LEFT EAR, [facility]-NO IMPLANTS. TOOTH EXTRACTIONS, OFFICE. [place] [facility] [place] RIGHT CARPAL TUNNEL RELEASE [facility]. 11/2015 [place] [facility] [place] KNEE REPLAC[place] Hx Anesthesia Reactions: No Infectious Disease History: No Infectious Disease History: Reports: History Other Infectious Disease - Sepsis Denies: Hx of Known/Suspected MRSA, Hx Shingles, Hx Tuberculosis, Traveled Outside the [place] in Last 30 Days - Family History Known Family History: Positive: Hypertension, Diabetes - Social History Alcohol Use: None Substance Use Type: Reports: None Hx Tobacco Use: No Smoking Status (MU): Never Smoked Tobacco Have You Smoked in the Last Year: No Review of Systems Positive: Fever Negative: Chest Pain Negative: Shortness Of Breath Positive: Vomiting, Nausea Positive: dysuria All Other Systems Reviewed And Are Negative: Yes Physical Exam - Summary Physical Exam Summary: VITAL SIGNS: Reviewed. GENERAL: Patient is a well-developed overweight elderly male who is lying comfortable in the stretcher. Patient is not in any acute respiratory distress. Feels warm to touch. HEAD AND FACE: No signs of trauma. No ecchymosis, hematomas or skull depressions. No sinus tenderness. EYES: PERRLA, EOMI x 2, No injected conjunctiva, no nystagmus. EARS: Hearing grossly intact. Ear canals and tympanic membranes are within normal limits. MOUTH: Oropharynx within normal limits. NECK: Supple, trachea is midline, no adenopathy, no JVD, no carotid bruit, no c- spine tenderness, neck with full ROM. CHEST: Symmetric, no tenderness at palpation. LUNGS: Clear to auscultation bilaterally. No wheezing or crackles. CVS: Slightly tachycardic with regular rhythm, S1 and S2 present, no murmurs or gallops appreciated. ABDOMEN: Soft, non-tender. No signs of distention. No rebound, no guarding, and no masses palpated. Bowel sounds are normal. EXTREMITIES: FROM in all major joints, no cyanosis or clubbing. 1+ edema in the bilateral lower extremities. NEURO: Alert and oriented x 3. No acute neurological deficits. Speech is normal and follows commands. SKIN: Dry and warm. Triage Information Reviewed: Yes Vital Signs On Initial Exam: Initial Vitals Temp Pulse Resp BP Pulse Ox 100.5 F 115 19 122/75 95 09/09/19 13:44 09/09/19 13:44 09/09/19 13:44 09/09/19 13:44 09/09/19 13:44 Vital Signs Reviewed: Yes Procedures - Sedation Patient Received Moderate/Deep Sedation with Procedure: No Diagnostics - Vital Signs Vital Signs Temp Pulse Resp BP Pulse Ox 09/09/19 13:44 100.5 F 115 19 122/75 95 - Laboratory Result Diagrams: 09/10/19 06:52 09/10/19 06:52 Lab Statement: Any lab studies that have been ordered have been reviewed, and results considered in the medical decision making process. - Radiology Chest X-Ray Radiology Interpretation Completed By: Radiologist Summary of Radiographic Findings: Impression: Low lung volumes, small bibasilar infiltrates. ED physician has reviewed this report. - Ultrasound Renal US Ultrasound Interpretation Completed By: Radiologist Summary of Ultrasound Findings: Impression: No hydronephrosis or nephrolithiasis. ED physician has reviewed this report. Re-Evaluation - Re-Evaluation First Eval Re-Evaluation Time: 15:50 Comment: We discussed results and plan for admission. GIGU Course/Dx - Course Assessment/Plan: This patient is a 73-year-old male who presents to the emergency department after he was seen by Dr. Celis from urology and he thinks that the patient has an acute prostatitis. Blood test results without any significant abnormality except for WBCs of 16.3, absolute neutrophils of 13.7, glucose of 129, lactic acid of 2.2, troponin of 0.03, and CRP over 109.7. Chest x-ray impression: Low lung volumes, small the bibasilar infiltrates. Renal ultrasound impression: No hydronephrosis or nephrolithiasis. Dr. Celis recommended that the patient is started with IV fluids and Rocephin. He requests that for the patient to be admitted to the hospital services. I discussed my physical exam and test results with Dr. Dinh from the hospitalist services, and she agrees to admit the patient to her services. The patient is hemodynamically stable, alert and oriented x 3. - Diagnoses Differential Diagnoses - Male: Pyelonephritis, Urinary Tract Infection Provider Diagnoses: Prostatitis - Physician Notifications Discussed Care Of Patient With: Bess Dinh - hospitalist Time Discussed With Above Provider: 15:48 Instructed by Provider To: Admit As Inpatient - I discussed the patient's case with Dr. Dinh, and she accepts the patient for admisison. Discharge ED - Sign-Out/Discharge Documenting (check all that apply): Patient Departure - Patient accepted for admission by Dr. iDnh. - Discharge Plan Condition: Stable Disposition: ADMITTED TO [facility] - Billing Disposition and Condition Condition: STABLE Disposition: Admitted to [facility] - Attestation Statements Document Initiated by Jean-Paul: Yes Documenting Scribe: Vicki Ulloa Provider For Whom Jean-Paul is Documenting (Include Credential): Dr. Juan F Ochoa MD Scribe Attestation: Vicki England, scribed for Dr. Juan F Ochoa MD on 09/10/19 at 1151. Scribe Documentation Reviewed: Yes Provider Attestation: The documentation as recorded by the Vicki naranjo accurately reflects the service I personally performed and the decisions made by me, Dr. Juan F Ochoa MD Status of Scribe Document: Viewed
[2019-09-09 15:11] LABS: Hematocrit 43 % (42-52); Hemoglobin 14.5 g/dL (14.0-18.0); Mean Corpuscular HGB Conc 34 g/dL (31-36); Mean Corpuscular Hemoglobin 31 pg (27-31); Mean Corpuscular Volume 92 fL (80-94); Platelet Count 184 10^3/uL (150-450); Red Blood Count 4.65 10^6 /uL (4.18-5.48); Red Cell Distribution Width 14 % (10-15); White Blood Count 16.3 10^3/uL (3.5-10.8)
[2019-09-09 15:20] LABS: Activated Partial Thrombo Time 32.2 seconds (26.0-38.0); INR 1.17 (0.82-1.09)
[2019-09-09 15:29] LABS: Albumin/Globulin Ratio 1.3 (1-3); BUN/Creatinine Ratio 13.8 (8-20); C Reactive Protein 109.78 mg/L (<8.01); Calcium 9.2 mg/dL (8.6-10.3); EGFR African American 79.8 (>60); EGFR Non-African American 65.9 (>60); Globulin 3.1 g/dL (2-4); Total Bilirubin 1.2 mg/dL (0.2-1.0); Total Protein 7.1 g/dL (6.4-8.9)
[2019-09-09 15:36] LABS: Troponin I 0.03 ng/mL (<0.03)
[2019-09-09 15:43] LABS: ABS Lymphocytes 0.5 10^3/ul (1.0-4.8); ABS Monocytes 2.1 10^3/ul (0-0.8); ABS Neutrophils 13.7 10^3/ul (1.5-7.7); Lymphocyte % 3.1 %
[2019-09-09] MEDS ORDERED: NS 0.9% 1000 ML** 1,000 ML IV ONE ×2 (15:45→15:50)
[2019-09-09] MEDS ORDERED: Fluticasone NASAL SPRAY 50MCG* 16 gm SPRAY BTL BOTH NARES PRN (15:51)
[2019-09-09] MEDS ORDERED: NS 0.9% 1000 ML** 1,000 ML IV SCH (16:00)
[2019-09-09 16:20] LABS: Erythrocyte Sed Rate 12 mm/Hr (0-19)
--- NOTE | 2019-09-09 17:58 | HP ---
CC: Dr. Owens; Dr. Celis; Dr. Watt * HISTORY AND PHYSICAL: DATE OF ADMISSION: 09/09/19 PRIMARY CARE PROVIDER: Dr. Owens. UROLOGIST: Dr. Celis. E M ASSEMBLER: Dr. Watt. CHIEF COMPLAINT: Nausea, vomiting, burning with urination. HISTORY OF PRESENT ILLNESS: Olivier Bowden is a 73-year-old male with history of BPH, who noticed that he has symptoms of dysuria with urinary frequency, urinary incontinence and burning with urination 2 days ago. He called up his urologist's office yesterday morning for an appointment and he got it for today. He came in to see his urologist for appointment and at that point, he has been off and on vomiting for the past 24 hours. His temperature was 100.5 and he was tachycardic. He was sent by Dr. Celis to the ED for evaluation. Here, his temperature is 100.5, he is tachycardic. His lactic acid is mildly elevated at 2.2. He is going to be admitted with a diagnosis of severe sepsis due to UTI. The patient stated that he has been getting intermittent rigors and had night sweats overnight. He subjectively thinks that he had a fever, although it was not reported. His vomiting has resolved now and he denies any abdominal pain. He denies any flank pain. He denies any hematuria. The patient is going to be placed on full admission with a diagnosis of severe sepsis. PAST MEDICAL HISTORY: 1. History of BPH. 2. History of coronary artery disease, status post 2 stents placed in February 2009. Subsequent cardiac catheterization in 2010 showed 90% stenosis of the distal RCA with blood vessel too small for intervention. 3. History of dyslipidemia. 4. History of hypertension. PAST SURGICAL HISTORY: 1. Bilateral knee replacement surgeries. 2. History of lumbar spine surgery in the past. 3. History of bilateral carpal tunnel release. MEDICATIONS AT HOME: Include: 1. Nitroglycerin sublingually on a p.r.n. basis. 2. Voltaren gel 1% application up to 4 times a day p.r.n. 3. Fluticasone nasal spray 2 sprays both nostrils daily p.r.n. 4. Claritin 10 mg daily q.p.m. 5. Tylenol Extra Strength 500 mg on a p.r.n. basis. 6. Aspirin 81 mg daily. 7. Flomax 0.4 mg daily. 8. Simvastatin 40 mg daily. 9. Proscar 5 mg q.p.m. 10. Multivitamin 1 tablet daily. 11. PreserVision AREDS 1 daily. 12. Pantoprazole 40 mg daily. 13. Lisinopril 2.5 mg q.a.m. 14. Plavix 75 mg daily. 15. Metoprolol tartrate 75 mg b.i.d. 16. Furosemide 20 mg daily. Please note that the patient's furosemide was started within the past several weeks by Dr. Watt for the patient noting bilateral lower extremity edema and bilateral hand edema. ALLERGIES: ADHESIVE TAPE, MELONS, STRAWBERRY, SULFA causes nausea and vomiting , TRAMADOL causes nausea, and WALNUTS - itching. FAMILY HISTORY: Father who at the age of 52 of colon cancer. Mother with history of bladder cancer, who at the age of 94. SOCIAL HISTORY: The patient lives with his . He is independent with his activities of daily living. He is a full code. He denies any tobacco, alcohol , or drug use. His is his surrogate. REVIEW OF SYSTEMS: Please see history of present illness. In addition to above mentioned, the patient stated that he has chronic bilateral lower extremity edema for which he uses compression stockings. He had been placed on Lasix within approximately a month by Dr. Watt for the edema. His urinary incontinence started within the past 24 hours. He denies hematuria. All the remaining 12 systems were reviewed with the patient and were otherwise negative. PHYSICAL EXAMINATION GENERAL: The patient is a very pleasant 73-year-old male who is in no acute distress. The patient is alert and oriented x3. VITAL SIGNS: Blood pressure of 131/72, heart rate of 87 and regular, respiratory rate 19, oxygen saturation 97% on 2 L of oxygen via nasal cannula, and temperature of 100.5. HEENT: Head: Atraumatic, normocephalic. Eyes: Pupils are equal, reactive to light and accommodation. Oropharynx is clear. Mucosa moist. NECK: Supple. No JVD. No bruits bilaterally. RESPIRATORY: Clear to auscultation bilaterally. CARDIOVASCULAR: Regular rate and rhythm. No murmur. ABDOMEN: Soft, nontender. Bowel sounds are present in all 4 quadrants. There is no bilateral flank tenderness on palpation. EXTREMITIES: There is +1 pitting pedal edema bilaterally. Pulses are +2 bilaterally. There is no clubbing or cyanosis. NEUROLOGIC: Speech clear. Cranial nerves II through XII grossly intact. Motor strength is 5/5 bilaterally. PSYCHIATRIC: Oriented x3 with no evidence of anxiety or depression. SKIN: On evaluation of the skin, no ecchymotic areas or rashes noted. DIAGNOSTIC STUDIES/LAB DATA: Laboratory data showed sodium of 137, potassium 4.1, chloride 103, carbon dioxide 25, BUN 15, creatinine 1.09. Liver function tests unremarkable apart from total bilirubin of 1.2. Troponin 0.03. C- reactive protein of 109. Lactic acid of 2.2. CBC: White blood cell count of 16.3, hemoglobin of 14.5, hematocrit 43, and platelets of 184. Urinalysis was obtained in Dr. Celis's office and as per the report that I received from the ED provider, it was positive for UTI. Urine cultures at this point are pending at the time of dictation. Blood cultures are pending at the time of dictation. Renal ultrasound, impression: "No hydronephrosis or nephrolithiasis." Portable chest x-ray, impression: "Low lung volumes with small bibasilar infiltrates." ASSESSMENT AND PLAN: 1. The patient has severe sepsis likely due to urinary tract infection. His urinalysis was obtained in Dr. Celis's office and as per report was noted to be positive for urinary tract infection. The patient received 2 g of IV ceftriaxone in the emergency department and we will continue ceftriaxone at 1 g daily from now on. The patient is going to be placed on intravenous hydration. His lactic acid is going to be repeated tonight. 2. The patient has a history of coronary artery disease and his troponin is basically negative at 0.03. Nevertheless, the patient is going to be observed on telemetry monitored bed and we will continue rechecking his troponin. His aspirin and Plavix are going to be continued. 3. History of peripheral edema. The patient had been on Lasix for that. I will hold the Lasix for the time being and restart it likely in the morning. We will continue daily weights to evaluate if the patient is retaining more fluid. 4. For the patient's history of benign prostatic hyperplasia, finasteride and Flomax are going to be continued. 5. For DVT prophylaxis, the patient is going to be placed on heparin subcutaneously. 6. The patient's code status is full. His surrogate is his . TIME SPENT: Approximately 65 minutes was spent on admission of this patient, more than half that time was spent [id number] with the patient during the interview and physical exam. [id number]/[facility] #: [id number] MTDD
[2019-09-09] MEDS: Cetirizine* 10 MG TAB PO SCH (18:13)
[2019-09-09] MEDS: Finasteride TAB* 5 MG PO SCH (18:13)
[2019-09-09] MEDS: Tamsulosin CAP* 0.4 MG PO SCH (18:14)
[2019-09-09] MEDS: Acetaminophen TAB* 325 MG PO PRN ×2 (18:17→22:32)
[2019-09-09 18:29] LABS: Urine Appearance Cloudy; Urine Bilirubin Negative (Negative); Urine Blood 2+ (Negative); Urine Color Yellow; Urine Glucose Negative (Negative); Urine Ketones Trace (Negative); Urine Nitrite Positive (Negative); Urine Protein Negative (Negative); Urine Specific Gravity 1.018 (1.010-1.030); Urine Urobilinogen Negative (Negative)
[2019-09-09 18:32] LABS: Urine Bacteria 1+ (Absent); Urine Red Blood Cell 1+(3-5/hpf) (Absent); Urine Squamous Epithelial Cell Present (Absent); Urine White Blood Cell 3+(>20/hpf) (Absent)
[2019-09-09 18:49] LABS: Troponin I 0.04 ng/mL (<0.03)
[2019-09-09] MEDS: Heparin VIAL(*) 5000 UNITS/ML VIAL (FIVE THOUSAND) SUBCUT SCH (22:29)
[2019-09-09] MEDS: Metoprolol Tartrate TAB* 25 MG PO SCH (22:29)
[2019-09-10 07:13] LABS: Hematocrit 36 % (42-52); Hemoglobin 12.3 g/dL (14.0-18.0); Mean Corpuscular HGB Conc 34 g/dL (31-36); Mean Corpuscular Hemoglobin 31 pg (27-31); Mean Corpuscular Volume 92 fL (80-94); Mean Platelet Volume 7.9 fL (7.4-10.4); Platelet Count 146 10^3/uL (150-450); Red Blood Count 3.92 10^6 /uL (4.18-5.48); Red Cell Distribution Width 14 % (10-15)
[2019-09-10 07:23] LABS: Anion Gap 4 mmol/L (2-11); CO2 Carbon Dioxide 26 mmol/L (22-32); Calcium 8.1 mg/dL (8.6-10.3); Chloride 107 mmol/L (101-111); Potassium 3.8 mmol/L (3.5-5.0); Sodium 137 mmol/L (135-145)
[2019-09-10 07:28] LABS: BUN/Creatinine Ratio 12.2 (8-20); Blood Urea Nitrogen 11 mg/dL (6-24); EGFR African American 99.5 (>60); EGFR Non-African American 82.3 (>60); Glucose 127 mg/dL (70-100)
[2019-09-10 07:32] LABS: Troponin I 0.07 ng/mL (<0.03)
[2019-09-10 07:37] LABS: ABS Monocytes 1.8 10^3/ul (0-0.8); ABS Neutrophils 11.2 10^3/ul (1.5-7.7); Lymphocyte % 6.9 %
--- NOTE | 2019-09-10 08:01 | PN ---
Subjective Date of Service: 09/10/19 Interval History: Pt feels better today: dysuria, n/v resolved. Objective Active Medications: Acetaminophen (Tylenol Tab*) 650 mg PO Q4H PRN PRN Reason: PAIN-MILD/TEMP >/= 100.4 Last Admin: 09/09/19 22:32 Dose: 650 mg Aspirin (Aspirin Ec Tab*) 81 mg PO DAILY [facility] Atorvastatin Calcium (Lipitor*) 20 mg PO DAILY [facility] Cetirizine HCl (Zyrtec*) 10 mg PO QPM [facility] Last Admin: 09/09/19 18:13 Dose: 10 mg Clopidogrel Bisulfate (Plavix Tab*) 75 mg PO DAILY [facility] Finasteride (Proscar Tab*) 5 mg PO QPM [facility] Last Admin: 09/09/19 18:13 Dose: 5 mg Fluticasone Propionate (Flonase Nasal [place] 50mcg*) 2 spray BOTH NARES DAILY PRN PRN Reason: Allergy Symptoms Furosemide (Lasix Tab*) 20 mg PO DAILY [facility] Heparin Sodium (Porcine) (Heparin Vial(*)) 5,000 units SUBCUT Q8HR [facility] Last Admin: 09/09/19 22:29 Dose: 5,000 units Ceftriaxone Sodium 1 gm/ (Sodium Chloride) 50 mls @ 100 mls/hr IVPB Q24H [facility] Lisinopril (Prinivil Tab*) 2.5 mg PO QAM [facility] Metoprolol Tartrate (Lopressor Tab*) 75 mg PO BID [facility] Last Admin: 09/09/19 22:29 Dose: 75 mg Pantoprazole Sodium (Protonix Tab*) 40 mg PO DAILY [facility] Tamsulosin HCl (Flomax Cap*) 0.4 mg PO QPM [facility] Last Admin: 09/09/19 18:14 Dose: 0.4 mg Vital Signs - 8 hr 09/10/19 09/10/19 09/10/19 00:17 03:19 07:48 Temperature 97.8 F 98.1 F 99.7 F Pulse Rate 80 87 77 Respiratory 24 18 20 Rate Blood Pressure 111/52 113/45 118/57 (mmHg) O2 Sat by Pulse 95 94 94 Oximetry Oxygen Devices in Use Now: None Appearance: 73 yo m in nAD, aAOx3 Eyes: No Scleral Icterus, PERRLA Ears/Nose/Mouth/Throat: NL Teeth, Lips, Gums, Mucous Membranes Moist Neck: NL Appearance and Movements; NL JVP, Trachea Midline Respiratory: Symmetrical Chest Expansion and Respiratory Effort Cardiovascular: NL Sounds; No Murmurs; No JVD, RRR Abdominal: NL Sounds; No Tenderness; No Distention Lymphatic: No Cervical Adenopathy Extremities: No Clubbing, Cyanosis, - - +1 pitinf pedal edema b/l Skin: No Nodules or Sclerosis Neurological: Alert and Oriented x 3, NL Muscle Strength and Tone Result Diagrams: 09/10/19 06:52 09/10/19 06:52 Assess/Plan/Problems-Billing Assessment: 73 yo M with h/o CAD(2x stents and, not amenable for intervention, 90% distal RCA disease), BPH presents with sepsis, UTI - Patient Problems (1) Severe sepsis Comment: due to UTI Clood cx and urine cx pending cont Ceftriaxone Clinically improving (2) BPH (benign prostatic hyperplasia) Comment: Cont finasteride and tamsulosin (3) HTN (hypertension) Comment: Normotensive. Continue lisinopril and metoprolol. (4) Ischemic cardiomyopathy Comment: will restart home Lasix today (5) CAD (coronary artery disease) Comment: Asymptomatic. Cont ASA/Plavix and BB. Troponin cont to climb likely due to demand ischemia in pt with h/o known CAD cont telem, get EKG today, get Echo (6) DVT prophylaxis Comment: HSQ Status and Disposition: inpatient
[2019-09-10] MEDS: Heparin VIAL(*) 5000 UNITS/ML VIAL (FIVE THOUSAND) SUBCUT SCH ×3 (08:06→22:17)
[2019-09-10] MEDS: Acetaminophen TAB* 325 MG PO PRN ×2 (08:09→16:11)
[2019-09-10] MEDS: Atorvastatin* 20 MG TAB PO SCH (09:20)
[2019-09-10] MEDS: Lisinopril TAB* 5 MG PO SCH (09:20)
[2019-09-10] MEDS: Clopidogrel TAB* 75 MG PO SCH (09:21)
[2019-09-10] MEDS: Metoprolol Tartrate TAB* 25 MG PO SCH ×2 (09:21→22:17)
[2019-09-10] MEDS: Aspirin EC TAB* 81 MG TAB.EC PO SCH (09:21)
[2019-09-10] MEDS: Pantoprazole TAB * 40 MG TAB PO SCH (09:21)
[2019-09-10] MEDS: Furosemide TAB* 20 MG PO SCH (09:21)
[2019-09-10 14:03] LABS: Troponin I 0.07 ng/mL (<0.03)
[2019-09-10] MEDS ORDERED: cefTRIAXone(*) 1 GM in NS 0.9% 50 ML* 50 ML IVPB SCH (16:00)
[2019-09-10] MEDS: Cetirizine* 10 MG TAB PO SCH (16:03)
[2019-09-10] MEDS: Finasteride TAB* 5 MG PO SCH (16:04)
[2019-09-10] MEDS: Tamsulosin CAP* 0.4 MG PO SCH (16:04)
[2019-09-11] MEDS: Heparin VIAL(*) 5000 UNITS/ML VIAL (FIVE THOUSAND) SUBCUT SCH (06:06)
[2019-09-11] MEDS: Lisinopril TAB* 5 MG PO SCH (08:29)
[2019-09-11] MEDS: Acetaminophen TAB* 325 MG PO PRN (08:30)
[2019-09-11] MEDS: Furosemide TAB* 20 MG PO SCH (08:30)
[2019-09-11] MEDS: Metoprolol Tartrate TAB* 25 MG PO SCH (08:30)
[2019-09-11] MEDS: Aspirin EC TAB* 81 MG TAB.EC PO SCH (08:30)
[2019-09-11] MEDS: Clopidogrel TAB* 75 MG PO SCH (08:30)
[2019-09-11] MEDS: Pantoprazole TAB * 40 MG TAB PO SCH (08:30)
[2019-09-11] MEDS: Atorvastatin* 20 MG TAB PO SCH (08:31)
[2019-09-11 12:34] VITALS: BP 125/64
--- NOTE | 2019-09-11 13:02 | DS ---
CC: Dr. Owens; Dr. Celis; Dr. Watt * DISCHARGE SUMMARY: DATE OF ADMISSION: 09/09/19 DATE OF DISCHARGE: 09/11/19 PRIMARY CARE PROVIDER: Dr. Owens. DISPOSITION AT DISCHARGE: Home. CONDITION AT DISCHARGE: Stable. DISCHARGE DIAGNOSES: 1. Severe sepsis due to E. coli urinary tract infection. 2. Elevated troponin, likely due to demand ischemia. SECONDARY DIAGNOSES: 1. Benign prostatic hyperplasia. 2. Coronary artery disease. 3. Dyslipidemia. 4. Hypertension. MEDICATIONS AT DISCHARGE: Include: 1. Nitroglycerin sublingually on a p.r.n. basis. 2. Voltaren gel, apply as needed. 3. Fluticasone nasal spray 2 sprays both nostrils daily p.r.n. 4. Claritin 10 mg daily p.r.n. 5. Tylenol Extra Strength 500 mg on a p.r.n. basis. 6. Aspirin 81 mg daily. 7. Flomax 0.4 mg daily. 8. Simvastatin 40 mg daily. 9. Proscar 5 mg q.p.m. 10. Multivitamin 1 tablet daily. 11. PreserVision AREDS 1 tablet daily. 12. Pantoprazole 40 mg daily. 13. Lisinopril 2.5 mg daily. 14. Plavix 75 mg daily. 15. Metoprolol tartrate 75 mg b.i.d. 16. Furosemide 20 mg daily. 17. Cefuroxime 500 mg twice a day for total of 5 days and stop. LABORATORY DATA AND STUDIES PERFORMED DURING THE HOSPITAL STAY: On 09/10/19, sodium of 137, potassium 3.8, chloride 107, carbon dioxide 26, BUN 11, creatinine 0.9. The patient's troponin peaked at 0.07. On 09/10/19, white blood cell count of 14.0, hemoglobin of 12.3, hematocrit of 36, and platelets of 146. Urine cultures obtained from Dr. Celis's office are positive for E. coli sensitive to most of the medications tested. Renal ultrasound obtained on admission on 09/09/19, impression: "No hydronephrosis or nephrolithiasis." HOSPITALIZATION COURSE: Olivier Bowden is a 73-year-old male with history of coronary artery disease and BPH, who started having symptoms of dysuria 2 days before presentation to Dr. Celis's office. Dr. Celis took a urine sample and directed the patient to the hospital for evaluation due to symptoms of nausea, vomiting, rigors, and fevers at home. The patient was noted to have a temperature of 105 on arrival. His lactic acid was 2.2 upon arrival to the emergency department. His troponin was also mildly elevated and his C-reactive protein was 109.78. Luckily, his renal ultrasound did not show any obstruction. The patient was started on ceftriaxone with good results. His urine cultures turned out to be positive for E. coli that was pansensitive. His troponins continued to be mildly positive and raising until it peaked at 0.07. The patient had no cardiac symptoms, no shortness of breath or chest pain. He did complain of pleuritic chest pain when coughing or taking a deep breath that was more related to musculoskeletal problems since he was vomiting for approximately 6 hours prior to his aspiration. By the time of discharge, his symptoms of dysuria resolved and he had been afebrile ever since his admission. He is going to be discharged home. Recommendation to follow up with his primary care provider in 4 to 7 days, Dr. Celis as previously scheduled on 09/27/[address] Watt to call for an appointment in 2 to 4 weeks. PHYSICAL EXAM AT THE TIME OF DISCHARGE: Vital Signs: Blood pressure of 138/71 , heart rate of 71 and regular, respiratory rate 17, oxygen saturation 95% on room air, temperature 98.0. General: The patient is a pleasant 73-year-old male who is in no acute distress. Alert, awake, and oriented x3. HEENT: Head : Atraumatic, normocephalic. Eyes: Pupils are equal and reactive to light and accommodation. Oropharynx clear. Mucosa moist. Neck: Supple. No JVD. No bruit bilaterally. Cardiovascular: Regular rate and rhythm. No murmur. Respiratory: Clear to auscultation bilaterally. Abdomen: Soft and nontender. Bowel sounds are present in all 4 quadrants. Extremities: There is +1 pitting pedal edema, which is chronic. Pulses are +2 bilaterally. There is no clubbing or cyanosis. Neuro Evaluation: Speech is clear. Cranial nerves II through XII grossly intact. Motor strength is 5/5 bilaterally. Please note that this is a short summary of the patient's hospital stay. Please refer to further medical records for details. Please also note that the patient's blood cultures were positive for Staphylococcus epidermidis 1/ bottle and was considered contamination. TIME SPENT: Approximately 40 minutes was spent on the patient's discharge. [id number]/[facility] #: [id number]
== END 2019-09-11 13:25 | disposition home or self-care (01) | DRG 872 ==
LOC: ED 13:41 → MED 15:56
PROVIDERS: ADMIT Internal Medicine; ATTEND Internal Medicine
DX: A41.1 Sepsis due to other specified staphylococcus (principal); I24.8 Other forms of acute ischemic heart disease; N39.0 Urinary tract infection, site not specified; R74.8 Abnormal levels of other serum enzymes; N40.0 Benign prostatic hyperplasia without lower urinary tract symptoms; I25.10 Atherosclerotic heart disease of native coronary artery without angina pectoris; E78.5 Hyperlipidemia, unspecified; I25.5 Ischemic cardiomyopathy; I10 Essential (primary) hypertension; B96.20 Unspecified Escherichia coli [E. coli] as the cause of diseases classified elsewhere; R60.0 Localized edema; Z96.653 Presence of artificial knee joint, bilateral; Z95.5 Presence of coronary angioplasty implant and graft; Z79.1 Long term (current) use of non-steroidal anti-inflammatories (NSAID); Z79.02 Long term (current) use of antithrombotics/antiplatelets; Z79.82 Long term (current) use of aspirin; Z79.899 Other long term (current) drug therapy; Z91.018 Allergy to other foods; Z88.2 Allergy status to sulfonamides; Z88.8 Allergy status to other drugs, medicaments and biological substances; Z91.048 Other nonmedicinal substance allergy status; Z80.0 Family history of malignant neoplasm of digestive organs; Z80.52 Family history of malignant neoplasm of bladder
CPT/HCPCS: 36415; 71046; 76775; 80048; 80053; 81003; 81015; 83605; 84484; 85025; 85610; 85652; 85730; 86140; 87040; 87077; 87150; 87205; 93005; 99284; A9270-GY; J0696; J1644